=== PATIENT | male | born 1960 | race African-American/Black ===

== ENCOUNTER 2018-02-11 11:09 | Inpatient (IN) | payer OTHER ==
[~2018-02-11] VITALS: Ht 172.7 cm; Wt 82.1 kg
[2018-02-11] MEDS ORDERED: HYDR-552 PO (11:22)
--- NOTE | 2018-02-11 11:48 | NUR ---
ABDOMINAL DISTENSION, SEEN AT [place] 02/08/18 FOR ASCITIS. PT AAOX3, VSS. DENIES CP, SOB, DIZZINESS, N/V/D @ THIS TIME. PT SEEN & EVAL'D BY DR. VERAS. EKG DONE. WILL CONT TO MONITOR.
[2018-02-11 11:59] LABS: CALCIUM, SERUM 7.4 mg/dL (8.5-10.1); CARBON DIOXIDE 29 mmol/L (21-32); CHLORIDE 100 mmol/L (98-107); CREATININE 0.8 mg/dL (0.6-1.3); GLUCOSE 154 mg/dL (74-106); SODIUM SERUM 133 mmol/L (136-145); UREA NITROGEN, BLOOD 3 mg/dL (7-18)
[2018-02-11 12:04] LABS: POTASSIUM 2.8 mmol/L (3.5-5.1)
[2018-02-11 12:07] LABS: TROPONIN I 0.114 ng/mL (0.00-0.056)
[2018-02-11 12:16] LABS: ALANINE AMINOTRANSFERASE 61 U/L (12-78); ALBUMIN 2.2 g/dL (3.4-5.0); ALCOHOL, BLOOD 244 mg/dL (0-0); ALKALINE PHOSPHATASE 167 U/L (46-116); ASPARTATE AMINOTRANSFERASE 178 U/L (15-37); BILIRUBIN,DIRECT 3.6 mg/dL (0.0-0.2); BILIRUBIN,TOTAL 5.1 mg/dL (0.2-1.0); TOTAL PROTEIN, SERUM 8.3 g/dL (6.4-8.2)
[2018-02-11 12:22] LABS: ACETAMINOPHEN < 2 ug/ml (10-30); SALICYLATE < 2.8 mg/dL (2.8-20.0)
[2018-02-11] MEDS ORDERED: ZOLPIDEM TARTRATE 5 MG TABLET PO PRN (13:00)
[2018-02-11] MEDS ORDERED: MAGNESIUM HYDROXIDE 30 ML UDC PO PRN (13:00)
[2018-02-11] MEDS ORDERED: ACETAMINOPHEN 325 MG TABLET PO PRN (13:00)
[2018-02-11] MEDS ORDERED: Z GUARD REMEDY 2 OZ OINT TP PRN (13:00)
[2018-02-11] MEDS ORDERED: MAG HYDROX/AL HYDROX/SIMETH 30 ML UDC PO PRN (13:00)
[2018-02-11] MEDS ORDERED: HYDROCODONE/APAP 5/325MG 1 EACH TABLET PO PRN (13:00)
[2018-02-11] MEDS ORDERED: ONDANSETRON HCL/PF 4 MG/2 ML VIAL IVP PRN (13:00)
[2018-02-11 13:09] LABS: HEMATOCRIT 38 % (39-51); HEMOGLOBIN 12.7 g/dL (13.5-17.5); MEAN CORPUSCULAR HEMOGLOBIN 35 PG (26.0-33.0); MEAN CORPUSCULAR HGB CONC 34 g/dl (31.0-36.0); MEAN CORPUSCULAR VOLUME 103 fL (80-96); PLATELET COUNT (AUTO) 110 /CMM (150-450); RDW COEFFICIENT OF VARIATION 15.5 (11.5-15.0); RED BLOOD CELL COUNT(AUTO) 3.67 MIL/uL (4.5-6.0); WHITE BLOOD COUNT (AUTO) 4.6 K/uL (4.3-11.0)
[2018-02-11 13:12] LABS: BAND % (MANUAL) 4 % (0.0-5.0); BASOPHILS % (MANUAL) 0 % (0.0-2.0); EOSINOPHILS % (MANUAL) 1 % (0-4); LYMPHOCYTES % (MANUAL) 22 % (16-48); MONOCYTES % (MANUAL) 11 % (0-11.0); NEUTROPHILS % (MANUAL) 62 (42-76)
--- NOTE | 2018-02-11 13:49 | NUR ---
PT RESTING EYES CLOSED BUT EASILY AWAKEN WITH VERBAL STIMULI. DENIES ABD PAIN, SOB, N/V/D, DIZZINESS, NAD NOTED @ THIS TIME. WILL CONT TO MONITOR.
[2018-02-11 14:05] LABS: APPEARANCE,URINE Clear (CLEAR); BILIRUBIN,URINE MODERATE (NEGATIVE); BLOOD, URINE Small Ery/uL (NEGATIVE); KETONES,URINE Trace (NEGATIVE); LEUKOCYTE ESTERASE ,URINE Negative (NEGATIVE); NITRITE, URINE Negative (NEGATIVE); PH,URINE 5.5 (5.0-8.0); PROTEIN,URINE Negative (NEGATIVE); UGLUCOSE Negative (NEGATIVE)
[2018-02-11 14:13] LABS: COLOR,URINE Dark Yellow (YELLOW)
[2018-02-11 14:45] VITALS: BP 141/80
--- NOTE | 2018-02-11 14:45 | NUR ---
REVERSE UNIT OPERATOR NOTES RECEIVED PATIENT FROM ER. PATIENT DIAGNOSIS OF LIVER FAILURE. PATIENT A/OX4, ABLE TO AMBULATE. NO ACUTE DISTRESS, NO SOB, DENIED ANY PAIN OR DISCOMFORT AT THE MOMENT. IV SITE INTACT AND PATENT. ABDOMINAL DISTENSION/ASCITES NOTED. BILATERAL LOWER EXTREMITIES PITTING EDEMA NOTED. BED IN LOW/LOCKED POSITION, SIDERAILS UPX2, CALL LIGHT IN REACH. WILL CONTINUE TO MONIOTR ACCORDINGLY. ORDERS NOTED AND WILL CARRY OUT.
[2018-02-11] MEDS ORDERED: FUROSEMIDE 40 MG/4 ML VIAL IV SCH (15:00)
[2018-02-11] MEDS ORDERED: POTASSIUM CHLORIDE 20 MEQ TAB.PRT.SR PO ONE (15:00)
--- NOTE | 2018-02-11 15:00 | NUR ---
HOME MEDS BROUGHT TO THE PHARMACY. ALL BELONGINGS NOTED ON CHECKLIST BY KESHIA VERMA.
[2018-02-11 15:18] LABS: BACTERIA,URINE Rare /HPF (None Seen); WBC,URINE 0-2 /HPF (0-3)
[2018-02-11 15:19] LABS: SQUAMOUS EPITHELIAL CELL,UR Rare /HPF (None Seen)
[2018-02-11] MEDS: THIAMINE HCL 100 MG TABLET PO SCH (15:35)
[2018-02-11] MEDS: FOLIC ACID 1 MG TABLET PO SCH (15:35)
[2018-02-11] MEDS: PYRIDOXINE HCL 50 MG TABLET PO SCH (15:36)
[2018-02-11] MEDS: SPIRONOLACTONE 25 MG TABLET PO SCH (15:37)
[2018-02-11 16:00] VITALS: BP 143/78
[2018-02-11] MEDS: ALBUMIN 25% 25 GM in PREMIX 1 EA IV SCH (16:50)
[2018-02-11] MEDS ORDERED: LACTULOSE 10 G/15 ML UDC (PYXIS) PO PRN (17:00)
[2018-02-11] MEDS: LACTULOSE 10 G/15 ML UDC (PYXIS) PO SCH (17:14)
--- NOTE | 2018-02-11 18:10 | NUR ---
RN NOTES MANAGER FIXED INCOME CALLED AND INFORM THAT PARACENTESIS WILL BE DONE TOMORROW.
--- NOTE | 2018-02-11 18:32 | NUR ---
@ 17;00, INR level did not check yet. This exam will be done tomorrow on 02/12/2018, after checking INR level. Nurse Alcaraz is aware of it.
--- NOTE | 2018-02-11 19:25 | NUR ---
RN CLOSING NOTES PATIENT IN STABLE CONDITION, ALL NEEDS ATTENDED AND PROVIDED, ALL DUE MEDS GIVEN ORDERED. KEPT PATIENT SAFE AND COMFORTABLE. BED IN LOW/LOCKED POSITION, SIDERAILS UPX2, CALL LIGHT IN REACH. ENDORSED TO NIGHT RN FOR ERIK.
[2018-02-11 19:27] LABS: INR 1.37 (0.87-1.13)
--- NOTE | 2018-02-11 19:30 | NUR ---
HOME HEALTH NURSE LICENSED PRACTICAL OPENING NOTES RECEIVED PATIENT IN BED AWAKE. ALERT AND ORIENTED X3. VERBALLY RESPONSIVE. BREATHING EVEN AND UNLABORED. NO SOB NOTED. ON ROOM -AIR. DENIES ANY PAIN OR DISCOMFORT. IV ON LEFT AC#20 INTACT AND PATENT. ALL OTHER NEEDS ATTENDED TO. CALL LIGHT WITHIN REACH. BED ON LOWEST LOCKED POSITION. WILL CONTINUE TO MONITOR.
[2018-02-11 20:00] VITALS: BP 136/86
[2018-02-12] VITALS: BP 129/82
[2018-02-12 04:00] VITALS: BP 148/80
[2018-02-12] MEDS: ALBUMIN 25% 25 GM in PREMIX 1 EA IV SCH (04:39)
[2018-02-12] MEDS: LACTULOSE 10 G/15 ML UDC (PYXIS) PO SCH ×4 (05:57→18:13)
[2018-02-12 07:00] LABS: THYROID STIMULATING HORMONE 6.638 uIU/mL (0.358-3.74)
--- NOTE | 2018-02-12 07:01 | NUR ---
YARN SPOOLER CLOSING NOTES PATIENT IN BED AWAKE. ALERT AND ORIENTED X3. NO ACUTE CHANGES THROUGHOUT SHIFT. BREATHING EVEN AND UNLABORED. NO SOB NOTED. ON ROOM -AIR. DENIES ANY PAIN OR DISCOMFORT. IV ON LEFT AC#20 INTACT AND PATENT. ALL OTHER NEEDS ATTENDED TO. CALL LIGHT WITHIN REACH. BED ON LOWEST LOCKED POSITION. WILL ENDORSE TO ONCOMING NURSE FOR CONTINUITY OF CARE.
[2018-02-12 07:10] LABS: CALCIUM, SERUM 7.9 mg/dL (8.5-10.1); CREATININE 0.8 mg/dL (0.6-1.3); MAGNESIUM 1.4 mg/dL (1.8-2.4); PHOSPHORUS 2.7 mg/dL (2.5-4.9); POTASSIUM 3.4 mmol/L (3.5-5.1)
[2018-02-12 08:00] VITALS: BP 144/87
[2018-02-12 08:31] LABS: HEMATOCRIT 36 % (39-51); HEMOGLOBIN 12.8 g/dL (13.5-17.5); MEAN CORPUSCULAR HEMOGLOBIN 37 PG (26.0-33.0); MEAN CORPUSCULAR HGB CONC 36 g/dl (31.0-36.0); MEAN CORPUSCULAR VOLUME 103 fL (80-96); NEUTROPHILS % (AUTO) 55.5 % (43.0-81.0); PLATELET COUNT (AUTO) 80 /CMM (150-450); RDW COEFFICIENT OF VARIATION 15.7 (11.5-15.0); RED BLOOD CELL COUNT(AUTO) 3.47 MIL/uL (4.5-6.0); WHITE BLOOD COUNT (AUTO) 4.2 K/uL (4.3-11.0)
[2018-02-12 08:32] LABS: BASOPHILS % (AUTO) 1.5 % (0.0-2.0); EOSINOPHILS % (AUTO) 0.7 % (0.0-6.0); MONOCYTES % (AUTO) 15.3 % (2.0-12.0)
[2018-02-12] MEDS ORDERED: CELE200C PO (08:44)
[2018-02-12] MEDS ORDERED: AMLO10TA6 PO (08:44)
[2018-02-12] MEDS ORDERED: PANT40TA4 PO (08:44)
[2018-02-12] MEDS ORDERED: CYCL15DR16 EACHEYE (08:57)
[2018-02-12] MEDS: SPIRONOLACTONE 25 MG TABLET PO SCH (09:25)
[2018-02-12] MEDS: FUROSEMIDE 40 MG/4 ML VIAL IV SCH (09:25)
[2018-02-12] MEDS: FOLIC ACID 1 MG TABLET PO SCH (09:25)
[2018-02-12] MEDS: THIAMINE HCL 100 MG TABLET PO SCH (09:26)
[2018-02-12] MEDS: PYRIDOXINE HCL 50 MG TABLET PO SCH (09:26)
[2018-02-12] MEDS ORDERED: LORAZEPAM INJ 2 MG/ML VIAL IV PRN (11:00)
[2018-02-12 11:24] LABS: BAND % (MANUAL) 1 % (0.0-5.0); LYMPHOCYTES % (MANUAL) 25 % (16-48); MONOCYTES % (MANUAL) 16 % (0-11.0); NEUTROPHILS % (MANUAL) 58 (42-76)
[2018-02-12] MEDS ORDERED: POTASSIUM CHLORIDE 20 MEQ TAB.PRT.SR PO SCH (11:30)
--- NOTE | 2018-02-12 12:00 | NUR ---
PARACENTESIS COMPLETED.
[2018-02-12] MEDS: Magnesium 1GM/D5W 100ML PREMIX 100 ML IV SCH ×4 (12:02→16:02)
--- NOTE | 2018-02-12 14:41 | NUR ---
Social service consult requested by regional business manager Paige Mejia for possible homelessness. Pt. is a 57 year old -[place] male who was admitted to [facility] for cirrhosis of liver. SW met with pt. bedside. Pt. is alert and oriented x 4. Pt. was cooperative and pleasant with SW during the assessment. Pt. states he resides at [facility] located at [address] [place] [address] .Pt. has been residing there for the past 18 months. Pt. denies drug use. Pt. is an alcoholic and drinks 4 tall cans of beer and a pint of vodka per day for up to 5 to 6 days per week. Pt. denies cigarettes and marijuana use. Pt. has not been to any alcohol treatment programs in the past. Pt. is interested in getting alcohol treatment program referrals. SW to give pt. referrals prior to discharge. Pt. has psychiatric diagnosis of Bipolar, Schizophrenia and Depression. Pt. does take medication on a daily basis. No other social service needs are required at this time. SW is available, if needed.
[2018-02-12 16:00] VITALS: BP 155/88
--- NOTE | 2018-02-12 16:24 | NUR ---
ORDERS FOR PARACENTESIS FLUID GIVEN BY DR. GORE-SPECIMEN TO LAB AT THIS TIME.FURTHER ORDERS PLACED BY DR. GORE.
[2018-02-12 16:58] LABS: ALBUMIN 2.3 g/dL (3.4-5.0); BILIRUBIN,DIRECT 3.4 mg/dL (0.0-0.2); BILIRUBIN,TOTAL 5.5 mg/dL (0.2-1.0); TOTAL PROTEIN, SERUM 7.9 g/dL (6.4-8.2)
[2018-02-12 17:27] LABS: INR 1.42 (0.87-1.13)
--- NOTE | 2018-02-12 18:00 | NUR ---
POTASSIUM,MG REPLACEMENT COMPLETE.
--- NOTE | 2018-02-12 19:25 | NUR ---
RN OPENING NOTES RECEIVED PT IN BED, ASLEEP BUT EASILY AROUSABLE, VERBALLY RESPONSIVE, WITH NO C/O PAIN AND IN NO DISTRESS AT THIS TIME. PT ON TELE MONITORING SR @ 90s. PLACED PT'S CALL LIGHT WITHIN EASY REACH. PLACED BED IN LOW POSITION AND LOCKED IN PLACE. WILL CONTINUE TO MONITOR PT.
[2018-02-12 20:00] VITALS: BP 141/76
[2018-02-13] MEDS: LACTULOSE 10 G/15 ML UDC (PYXIS) PO SCH ×3 (00:05→12:00)
[2018-02-13 00:48] VITALS: BP 152/86
[2018-02-13 04:00] VITALS: BP 160/90
[2018-02-13 06:57] LABS: CALCIUM, SERUM 8.1 mg/dL (8.5-10.1); CREATININE 0.8 mg/dL (0.6-1.3); MAGNESIUM 1.6 mg/dL (1.8-2.4); PHOSPHORUS 3.2 mg/dL (2.5-4.9); POTASSIUM 3.3 mmol/L (3.5-5.1)
--- NOTE | 2018-02-13 06:57 | NUR ---
RN CLOSING NOTES PATIENT IN BED, ASLEEP BUT EASILY AROUSABLE, NO DISTRESS NOTED THROUGHOUT THE NIGHT, SLEPT WELL. PATIENT SAFELY AMBULATES TO THE BATHROOM, DENIES PAIN, IN NO DISTRESS AND WITH NO SOB, BREATHING EVEN AND UNLABORED. ON TELE MONITORING WITH SR @ 90s. ALL PATIENT'S NEEDS ATTENDED TO. PLACED CALL LIGHT WITHIN EASY REACH AND LOCKED BED IN LOW POSITION. WILL ENDORSE TO AM SHIFT NURSE FOR CONTINUITY OF CARE.
[2018-02-13 07:13] LABS: HEMATOCRIT 37 % (39-51); HEMOGLOBIN 13.1 g/dL (13.5-17.5); MEAN CORPUSCULAR HEMOGLOBIN 36 PG (26.0-33.0); MEAN CORPUSCULAR HGB CONC 35 g/dl (31.0-36.0); MEAN CORPUSCULAR VOLUME 103 fL (80-96); PLATELET COUNT (AUTO) 86 /CMM (150-450); RDW COEFFICIENT OF VARIATION 15.7 (11.5-15.0); RED BLOOD CELL COUNT(AUTO) 3.62 MIL/uL (4.5-6.0); WHITE BLOOD COUNT (AUTO) 4.5 K/uL (4.3-11.0)
[2018-02-13] MEDS ORDERED: PANTOPRAZOLE 40 MG TABLET.DR PO SCH (07:30)
--- NOTE | 2018-02-13 07:30 | NUR ---
RECEIVED PT. ALERT AND ORIENTED X4.VS STABLE,NO COMPLAINTS OFFERED.ABD. STILL DISTENDED.
[2018-02-13 08:00] VITALS: BP 157/89
[2018-02-13] MEDS: SPIRONOLACTONE 25 MG TABLET PO SCH (08:52)
[2018-02-13] MEDS: FUROSEMIDE 40 MG/4 ML VIAL IV SCH (08:52)
[2018-02-13] MEDS: PYRIDOXINE HCL 50 MG TABLET PO SCH (08:53)
[2018-02-13 08:54] VITALS: BP 157/89
[2018-02-13] MEDS: THIAMINE HCL 100 MG TABLET PO SCH (08:54)
[2018-02-13] MEDS: FOLIC ACID 1 MG TABLET PO SCH (08:55)
[2018-02-13] MEDS ORDERED: CYCLOPENTOLATE EACHEYE SCH (09:00)
[2018-02-13] MEDS ORDERED: AMLODIPINE BESYLATE 10 MG TABLET PO SCH (09:00)
[2018-02-13] MEDS ORDERED: CYCLOPENTOLATE LEFTEYE SCH (09:00)
--- NOTE | 2018-02-13 09:00 | NUR ---
TELE MONITOR REMOVED.
[2018-02-13] MEDS: Magnesium 1GM/D5W 100ML PREMIX 100 ML IV SCH ×2 (09:01→10:46)
[2018-02-13 09:42] LABS: BAND % (MANUAL) 1 % (0.0-5.0); EOSINOPHILS % (MANUAL) 1 % (0-4); LYMPHOCYTES % (MANUAL) 14 % (16-48); MONOCYTES % (MANUAL) 14 % (0-11.0); NEUTROPHILS % (MANUAL) 70 (42-76)
[2018-02-13] MEDS ORDERED: THIA100T13 PO (10:49)
[2018-02-13] MEDS ORDERED: FURO10VI PO (10:49)
[2018-02-13] MEDS ORDERED: PYRI50TA74 PO (10:49)
[2018-02-13] MEDS ORDERED: SPIR25TA PO (10:49)
[2018-02-13] MEDS ORDERED: LACT10SO6 PO (10:49)
[2018-02-13] MEDS ORDERED: FOLI1TAB16 PO (10:49)
[2018-02-13] MEDS ORDERED: POTASSIUM CHLORIDE 20 MEQ TAB.PRT.SR PO SCH ×2 (11:30→13:30)
--- NOTE | 2018-02-13 11:47 | NUR ---
CARIDAD met with pt. and gave him the following referrals to Alcohol treatment programs both inpatient and outpatient: [facility] located at [address] [facility] located at [address] [facility] and [facility] outpatient program located at [address], [address]. . CARIDAD updated Med Surg OMAR Berman, case coordinator Paige Mejia and Dr. Mcneil regarding giving the pt. referrals. No other social service needs are requested at this time. SW is available, if needed.
--- NOTE | 2018-02-13 12:00 | NUR ---
MG REPLACEMENT WELL POTASSIUM REPLACEMENT.PT. TOLERATED WELL.
--- NOTE | 2018-02-13 12:30 | NUR ---
DR. AVELAR IN AND PLANS FOR DISCHARGE TODAY.
--- NOTE | 2018-02-13 13:30 | NUR ---
DR. GORE TEXTED AND OK'DISCHARGE TODAY.
--- NOTE | 2018-02-13 15:15 | NUR ---
HEP LOCK OUT.MEDS FROM PHARMACY GIVEN BACK TO PT. WELL BELONGING SHEET SIGNED. ALL PAPERS SIGNED.ESCORTED TO LOBBY BY TEACHER ADVENTURE EDUCATION,FRIEND WAITING IN PARKING LOT.
== END 2018-02-13 15:15 | disposition home or self-care (01) | DRG 280 ==
LOC: ER 11:25 → TELE 14:24 → MED 02-13 09:39
PROC: 0W9G3ZZ Drainage of Peritoneal Cavity, Percutaneous Approach (ICD-10-PCS; principal; 2018-02-12)
DX: K70.31 Alcoholic cirrhosis of liver with ascites (principal); K70.11 Alcoholic hepatitis with ascites; I21.A1 Myocardial infarction type 2; D69.6 Thrombocytopenia, unspecified; K72.90 Hepatic failure, unspecified without coma; E72.20 Disorder of urea cycle metabolism, unspecified; E87.1 Hypo-osmolality and hyponatremia; E83.42 Hypomagnesemia; E87.70 Fluid overload, unspecified; E88.09 Other disorders of plasma-protein metabolism, not elsewhere classified; E87.6 Hypokalemia; D75.89 Other specified diseases of blood and blood-forming organs; F17.210 Nicotine dependence, cigarettes, uncomplicated; E80.6 Other disorders of bilirubin metabolism; K76.6 Portal hypertension; Y90.8 Blood alcohol level of 240 mg/100 ml or more; R60.1 Generalized edema; F10.188 Alcohol abuse with other alcohol-induced disorder; I10 Essential (primary) hypertension
CPT/HCPCS: 36415; 71045-TC; 76705-TC; 76942-TC; 80048-TC; 80061-TC; 80076-TC; 80305; 81000-TC; 82040-TC; 82140-TC; 83605-TC; 83735-TC; 84100-TC; 84155-TC; 84443-TC; 84484-TC; 85025-TC; 85610-TC; 87040-TC; 87070-TC; 87081-TC; 88305-TC; 88312-TC; 89051-TC; 93307-TC; A4216; A4606; G0480; J1940; J3475; P9047; Z7610

== ENCOUNTER 2019-02-18 15:37 | Inpatient (IN) | payer OTHER ==
[~2019-02-18] VITALS: Ht 170.2 cm; Wt 93.9 kg
[~2019-02-18 15:37] MED LIST: AMLO10TA7 PO; CYCL15DR16 EACHEYE; FOLI1TAB16 PO; FURO10VI PO; LACT10SO6 PO; PANT40TA4 PO; PYRI50TA15 PO; SPIR25TA PO; THIA100T13 PO
--- NOTE | 2019-02-18 17:01 | NUR ---
PATIENT CAME TO ER WITH ABDOMINAL SWELLING AND BLE EDEMA. NAD NOTED. NO SOB. PATIENT CONNECTED TO MONITOR. AWAITING MD BORJA. WILL CONTINUE TO MONITOR PATIENT FOR SAFETY.
--- NOTE | 2019-02-18 17:35 | NUR ---
blood drawn and sent to lab
[2019-02-18 17:43] LABS: BASOPHILS % (AUTO) 0.8 % (0.0-2.0); EOSINOPHILS % (AUTO) 1.1 % (0.0-6.0); HEMATOCRIT 38 % (39-51); HEMOGLOBIN 13.2 g/dL (13.5-17.5); LYMPHOCYTES # (AUTO) 1.1 /CMM (0.8-4.8); LYMPHOCYTES % (AUTO) 27.4 % (20.0-44.0); MEAN CORPUSCULAR HGB CONC 35 g/dl (31.0-36.0); MEAN CORPUSCULAR VOLUME 106 fL (80-96); MONOCYTES # (AUTO) 0.5 /CMM (0.1-1.30); MONOCYTES % (AUTO) 11.6 % (2.0-12.0); NEUTROPHILS # (AUTO) 2.3 /CMM (1.8-8.9); NEUTROPHILS % (AUTO) 59.1 % (43.0-81.0); PLATELET COUNT (AUTO) 94 /CMM (150-450); RED BLOOD CELL COUNT(AUTO) 3.57 MIL/uL (4.5-6.0)
[2019-02-18 17:51] LABS: CALCIUM, SERUM 7.8 mg/dL (8.5-10.1); CREATININE 0.9 mg/dL (0.6-1.3); POTASSIUM 3.2 mmol/L (3.5-5.1)
[2019-02-18 18:03] LABS: ALBUMIN 2.1 g/dL (3.4-5.0); BILIRUBIN,DIRECT 3.1 mg/dL (0.0-0.2); BILIRUBIN,TOTAL 3.8 mg/dL (0.2-1.0); TOTAL PROTEIN, SERUM 8.4 g/dL (6.4-8.2)
[2019-02-18 18:54] LABS: BAND % (MANUAL) 1 % (0.0-5.0); EOSINOPHILS % (MANUAL) 1 % (0-4); LYMPHOCYTES % (MANUAL) 28 % (16-48); MONOCYTES % (MANUAL) 7 % (0-11.0); NEUTROPHILS % (MANUAL) 63 (42-76)
--- NOTE | 2019-02-18 19:30 | NUR ---
ASSUMED CARE FOR THIS PT AT THIS TIME
--- NOTE | 2019-02-18 20:26 | NUR ---
REPORT GIVEN TO HEIDE MAXWELL FOR ERIK
--- NOTE | 2019-02-18 21:27 | NUR ---
TRANSFERRED PT PER ACLS PROTOCOL TO TELE BED
--- NOTE | 2019-02-18 21:27 | NUR ---
BLOCKER AND POLISHER GOLD WHEEL NOTE PT. ARRIVED FROM ER VIA GURNEY ACCOMPANIED BY ER STAFF. PT WAS ABLE TO AMBULATE WITH STEADY GAIT TO BED. PT. A/O X4, NO SIGNS OF SOB OR DISTRESS, NO C/O CHEST PAIN, N/V. STABLE ON ROOM AIR. IV IN R AC #[address] S/L. TELE MONITOR READING IS SR 80. ALL CURRENT NEEDS ATTENDED TO. BED LOW, LOCKED, UPPER RAILS UP, AND CALL LIGHT WITHIN REACH. PT BELONGINGS ACCOUNTED AND SIGNED FOR. WALLET, WATCH, AND NECKLACE PACKAGED WITH RUDOLFO (STITCHER SET UP OPERATOR AUTOMATIC) AND BROUGHT TO SWITCH OPERATOR TO THE SAFE. SKIN ASSESSED WITH BODY NOTED TO BE INTACT. DR. ROSENBERG MADE AWARE OF PT. ARRIVAL TO FLOOR. WILL CONT. TO MONITOR.
[2019-02-18 22:00] VITALS: BP 156/96
[2019-02-18] MEDS ORDERED: Z GUARD REMEDY 2 OZ OINT TP PRN (22:30)
[2019-02-18] MEDS ORDERED: MAG HYDROX/AL HYDROX/SIMETH 30 ML UDC PO PRN (22:30)
[2019-02-18] MEDS ORDERED: ONDANSETRON HCL/PF 4 MG/2 ML VIAL IVP PRN (22:30)
[2019-02-18] MEDS ORDERED: MAGNESIUM HYDROXIDE 30 ML UDC PO PRN (22:30)
[2019-02-18] MEDS ORDERED: ZOLPIDEM TARTRATE 5 MG TABLET PO PRN (22:30)
[2019-02-19] VITALS: BP 149/89
[2019-02-19 04:00] VITALS: BP 158/93
[2019-02-19] MEDS: LACTULOSE 10 G/15 ML UDC (PYXIS) PO SCH ×4 (05:06→17:04)
--- NOTE | 2019-02-19 06:38 | NUR ---
MS RN NOTE PT. REMAINS IN STABLE CONDITION A/O X4, NO SIGNS OF SOB OR DISTRESS, NO C/O CHEST PAIN, N/V. STABLE ON ROOM AIR. IV IN R AC #[address] S/L. TELE MONITOR READING IS SR 80. ALL CURRENT NEEDS ATTENDED TO. BED LOW, LOCKED, UPPER RAILS UP, AND CALL LIGHT WITHIN REACH. WILL CONT. TO MONITOR AND ENDORSE TO NEST SHIFT FOR ERIK.
--- NOTE | 2019-02-19 07:18 | NUR ---
ICE CREAM CHEF OPENING NOTES RECEIVED PATIENT IN BED RESTING COMFORTABLY IN MODERATE HIGH BACK REST. A/O X3. ON TELE MONITORING WITH CURRENT READING OF SR, HR OF 80'S. NO S/S OF DISTRESS AT THIS TIME. IV ACCESS ON RIGHT AC #20, SL. PATENT AND INTACT. SAFETY MEASURES IN PLACE, BED IN LOW LOCKED POSITION WITH SIDE RAILS UP X2. CALL LIGHT WITHIN EASY REACH. WILL CONTINUE TO MONITOR.
[2019-02-19] MEDS: PANTOPRAZOLE 40 MG TABLET.DR PO SCH (07:30)
[2019-02-19 07:35] LABS: BASOPHILS % (AUTO) 1.3 % (0.0-2.0); EOSINOPHILS % (AUTO) 1.2 % (0.0-6.0); HEMATOCRIT 36 % (39-51); HEMOGLOBIN 12.6 g/dL (13.5-17.5); LYMPHOCYTES # (AUTO) 0.9 /CMM (0.8-4.8); LYMPHOCYTES % (AUTO) 26.2 % (20.0-44.0); MEAN CORPUSCULAR HGB CONC 35 g/dl (31.0-36.0); MEAN CORPUSCULAR VOLUME 104 fL (80-96); MONOCYTES # (AUTO) 0.5 /CMM (0.1-1.30); MONOCYTES % (AUTO) 15.6 % (2.0-12.0); NEUTROPHILS # (AUTO) 1.9 /CMM (1.8-8.9); NEUTROPHILS % (AUTO) 55.7 % (43.0-81.0); PLATELET COUNT (AUTO) 88 /CMM (150-450); RED BLOOD CELL COUNT(AUTO) 3.44 MIL/uL (4.5-6.0); WHITE BLOOD COUNT (AUTO) 3.5 K/uL (4.3-11.0)
[2019-02-19 07:55] LABS: ALBUMIN 1.8 g/dL (3.4-5.0); BILIRUBIN,TOTAL 5.1 mg/dL (0.2-1.0); CALCIUM, SERUM 7.5 mg/dL (8.5-10.1); CREATININE 0.8 mg/dL (0.6-1.3); MAGNESIUM 1.3 mg/dL (1.8-2.4); POTASSIUM 3.4 mmol/L (3.5-5.1); TOTAL PROTEIN, SERUM 7.5 g/dL (6.4-8.2)
[2019-02-19 08:00] VITALS: BP 146/88
[2019-02-19] MEDS: Magnesium 1GM/D5W 100ML PREMIX 100 ML IV SCH ×2 (08:32→09:33)
[2019-02-19] MEDS: CARVEDILOL 12.5 MG TABLET PO SCH ×2 (09:00→21:09)
[2019-02-19] MEDS: FOLIC ACID 1 MG TABLET PO SCH (09:00)
[2019-02-19] MEDS: THIAMINE HCL 100 MG TABLET PO SCH (09:00)
[2019-02-19] MEDS: POTASSIUM CHLORIDE 20 MEQ TAB.PRT.SR PO SCH ×2 (09:00→10:00)
[2019-02-19] MEDS: SPIRONOLACTONE 25 MG TABLET PO SCH (09:00)
[2019-02-19] MEDS: AMLODIPINE BESYLATE 10 MG TABLET PO SCH (09:00)
[2019-02-19] MEDS: PYRIDOXINE HCL 50 MG TABLET PO SCH (09:00)
[2019-02-19 09:04] LABS: THYROID STIMULATING HORMONE 4.283 uIU/mL (0.358-3.74)
[2019-02-19] MEDS ORDERED: CYCLOPENTOLATE 1% OPHTHALMIC 2 ML BOTTLE EACHEYE SCH (12:00)
[2019-02-19] MEDS: POTASSIUM CL. PREMIX PERIPHER. 50 ML IV SCH ×4 (14:15→17:02)
[2019-02-19 16:00] VITALS: BP 140/90
--- NOTE | 2019-02-19 18:52 | NUR ---
EMPLOYEE TRAINING SPECIALIST CLOSING NOTES PATIENT IN BED RESTING COMFORTABLY IN MODERATE HIGH BACK REST. A/O X3. ON RA, TOLERATING WELL. NO S/S OF DISTRESS THROUGHOUT THE SHIFT. S/P US PARACENTESIS WITH OUTPUT OF 5500. IV ACCESS ON RIGHT AC #20, SL. PATENT AND INTACT. SAFETY MEASURES IN PLACE, BED IN LOW LOCKED POSITION WITH SIDE RAILS UP X2. CALL LIGHT WITHIN EASY REACH. WILL ENDORSED TO CERTIFIED OPHTHALMIC TECHNOLOGIST NURSE FOR ERIK.
--- NOTE | 2019-02-19 19:42 | NUR ---
MS RN NOTE RECEIVED PT. IN STABLE CONDITION A/O X4, NO SIGNS OF SOB OR DISTRESS, NO C/O CHEST PAIN, N/V. STABLE ON ROOM AIR. IV IN R AC #[address] S/L. ALL CURRENT NEEDS ATTENDED TO. BED LOW, LOCKED, UPPER RAILS UP, AND CALL LIGHT WITHIN REACH. WILL CONT TO MONITOR.
[2019-02-19 20:00] VITALS: BP 155/85
[2019-02-19 20:31] VITALS: BP 155/85
[2019-02-20] MEDS: LACTULOSE 10 G/15 ML UDC (PYXIS) PO SCH ×3 (00:05→12:00)
--- NOTE | 2019-02-20 05:08 | NUR ---
MS RN NOTE PT REFUSING 0600 DOSE OF LACTULOSE, STATING THAT IT MAKES HIM GO TO THE RESTROOM TOO MUCH. RISKS AND BENEFITS MADE AWARE WITH VERBALIZATION OF UNDERSTANDING. WILL CONT. TO MONITOR.
[2019-02-20 06:18] LABS: BASOPHILS % (AUTO) 0.8 % (0.0-2.0); EOSINOPHILS % (AUTO) 1.2 % (0.0-6.0); HEMATOCRIT 37 % (39-51); HEMOGLOBIN 12.8 g/dL (13.5-17.5); LYMPHOCYTES # (AUTO) 0.8 /CMM (0.8-4.8); LYMPHOCYTES % (AUTO) 22.4 % (20.0-44.0); MEAN CORPUSCULAR HGB CONC 35 g/dl (31.0-36.0); MEAN CORPUSCULAR VOLUME 104 fL (80-96); MONOCYTES # (AUTO) 0.6 /CMM (0.1-1.30); MONOCYTES % (AUTO) 17.4 % (2.0-12.0); NEUTROPHILS # (AUTO) 2.1 /CMM (1.8-8.9); NEUTROPHILS % (AUTO) 58.2 % (43.0-81.0); PLATELET COUNT (AUTO) 81 /CMM (150-450); WHITE BLOOD COUNT (AUTO) 3.6 K/uL (4.3-11.0)
[2019-02-20 06:33] LABS: CALCIUM, SERUM 7.8 mg/dL (8.5-10.1); CREATININE 0.8 mg/dL (0.6-1.3); POTASSIUM 3.6 mmol/L (3.5-5.1)
--- NOTE | 2019-02-20 06:41 | NUR ---
MS RN NOTE PT. IN STABLE CONDITION A/O X4, NO SIGNS OF SOB OR DISTRESS, NO C/O CHEST PAIN, N/V. STABLE ON ROOM AIR. IV IN R AC #[address] S/L. ALL CURRENT NEEDS ATTENDED TO. BED LOW, LOCKED, UPPER RAILS UP, AND CALL LIGHT WITHIN REACH. WILL CONT TO MONITOR AND ENDORSE TO NEXT SHIFT FOR ERIK.
--- NOTE | 2019-02-20 07:31 | NUR ---
MS RN OPENING NOTES RECEIVED PATIENT IN BED RESTING COMFORTABLY IN MODERATE HIGH BACK REST. A/O X3. IV ACCESS ON RIGHT AC #20, SL. PATENT AND INTACT. SAFETY MEASURES IN PLACE, BED IN LOW LOCKED POSITION WITH SIDE RAILS UP X2. CALL LIGHT WITHIN EASY REACH. WILL CONTINUE TO MONITOR.
[2019-02-20] MEDS: PANTOPRAZOLE 40 MG TABLET.DR PO SCH (07:43)
[2019-02-20 08:00] VITALS: BP 131/87
[2019-02-20] MEDS: SPIRONOLACTONE 25 MG TABLET PO SCH (08:17)
[2019-02-20] MEDS: THIAMINE HCL 100 MG TABLET PO SCH (08:17)
[2019-02-20] MEDS: AMLODIPINE BESYLATE 10 MG TABLET PO SCH (08:17)
[2019-02-20] MEDS: FOLIC ACID 1 MG TABLET PO SCH (08:17)
[2019-02-20 08:18] VITALS: BP 131/87
[2019-02-20] MEDS: CARVEDILOL 12.5 MG TABLET PO SCH (08:18)
[2019-02-20] MEDS: PYRIDOXINE HCL 50 MG TABLET PO SCH (08:18)
--- NOTE | 2019-02-20 14:00 | NUR ---
RN DISCHARGED NOTES PATIENT DISCHARGED IN STABLE CONDITION. A/OX 4. ABLE TO MAKE NEEDS KNOWN. V/S TAKEN, STABLE AND RECORDED. PATIENT'S IV REMOVED AND APPLIED PRESSURE DRESSING. NAME ARM BAND REMOVED. ALL BELONGINGS CHECKED AND SIGNED. HEALTH TEACHINGS/ DISCHARGED INSTRUCTIONS GIVEN AND VERBALIZED UNDERSTANDING. ARRANGE TRANSPORTATION AND CALLED [facility]. PATIENT LEFT UNIT AMBULATORY WITH NO ACUTE SIGNS OF DISTRESS. PATIENT ASSISTED TO THE LOBBY BY HOSPITAL STAFF (CANDI). CHARGE NURSE AWARE OF DISCHARGED.
== END 2019-02-20 14:03 | disposition home or self-care (01) | DRG 280 ==
LOC: ER 15:40 → TELE 20:46 → MED 02-19 09:58
PROVIDERS: ADMIT Internal Medicine; ATTEND Internal Medicine
DX: K70.31 Alcoholic cirrhosis of liver with ascites (principal); I21.A1 Myocardial infarction type 2; D61.818 Other pancytopenia; K72.90 Hepatic failure, unspecified without coma; D69.6 Thrombocytopenia, unspecified; E87.1 Hypo-osmolality and hyponatremia; E83.42 Hypomagnesemia; F10.10 Alcohol abuse, uncomplicated; Y90.7 Blood alcohol level of 200-239 mg/100 ml; Z91.14 Patient's other noncompliance with medication regimen; G89.29 Other chronic pain; Z79.899 Other long term (current) drug therapy; E87.6 Hypokalemia; D53.9 Nutritional anemia, unspecified; F17.200 Nicotine dependence, unspecified, uncomplicated; I10 Essential (primary) hypertension; I70.0 Atherosclerosis of aorta
CPT/HCPCS: 36415; 71045-TC; 76942-TC; 80048-TC; 80053-TC; 80061-TC; 80076-TC; 82140-TC; 83735-TC; 83880; 84100-TC; 84439-TC; 84443-TC; 84480; 84484-TC; 85025-TC; 85730-TC; 87081-TC; 93307-TC; G0378; G0480; J3475; J3480

== ENCOUNTER 2019-07-01 21:51 | Inpatient (IN) | payer OTHER ==
[~2019-07-01] VITALS: Ht 170.2 cm; Wt 92.5 kg
[~2019-07-01 21:51] MED LIST changes: -LACT10SO6 PO
--- NOTE | 2019-07-01 23:09 | NUR ---
TECH AT BEDSIDE FOR EKG
--- NOTE | 2019-07-01 23:26 | NUR ---
BLOOD DRAWN AND GIVEN TO PHLEB
--- NOTE | 2019-07-01 23:30 | NUR ---
RADIOLOGY AT BEDSIDE FOR XRAY
[2019-07-01 23:32] LABS: BASOPHILS % (AUTO) 0.5 % (0.0-2.0); EOSINOPHILS % (AUTO) 1.3 % (0.0-6.0); HEMATOCRIT 36 % (39-51); HEMOGLOBIN 12.4 g/dL (13.5-17.5); LYMPHOCYTES # (AUTO) 1.2 /CMM (0.8-4.8); LYMPHOCYTES % (AUTO) 28.2 % (20.0-44.0); MEAN CORPUSCULAR HGB CONC 34 g/dl (31.0-36.0); MEAN CORPUSCULAR VOLUME 102 fL (80-96); MONOCYTES # (AUTO) 0.6 /CMM (0.1-1.30); MONOCYTES % (AUTO) 14.3 % (2.0-12.0); NEUTROPHILS # (AUTO) 2.3 /CMM (1.8-8.9); NEUTROPHILS % (AUTO) 55.7 % (43.0-81.0); PLATELET COUNT (AUTO) 88 /CMM (150-450); RED BLOOD CELL COUNT(AUTO) 3.56 MIL/uL (4.5-6.0); WHITE BLOOD COUNT (AUTO) 4.2 K/uL (4.3-11.0)
[2019-07-01 23:38] LABS: CALCIUM, SERUM 7.9 mg/dL (8.5-10.1); CARBON DIOXIDE 31 mmol/L (21-32); CHLORIDE 105 mmol/L (98-107); CREATININE 0.9 mg/dL (0.6-1.3); GLUCOSE 99 mg/dL (74-106); POTASSIUM 3.2 mmol/L (3.5-5.1); SODIUM SERUM 141 mmol/L (136-145); UREA NITROGEN, BLOOD 5 mg/dL (7-18)
--- NOTE | 2019-07-01 23:45 | NUR ---
GAVE MOVESHEET TO ADMITTING TO CONTACT INSURANCE FOR AUTH
[2019-07-01 23:52] LABS: ALANINE AMINOTRANSFERASE 43 U/L (12-78); ALKALINE PHOSPHATASE 146 U/L (46-116); ASPARTATE AMINOTRANSFERASE 175 U/L (15-37); B-TYPE NATRIURETIC PEPTIDE 22 PG/ML (0-125); BILIRUBIN,DIRECT 3.2 mg/dL (0.0-0.2); BILIRUBIN,TOTAL 4.1 mg/dL (0.2-1.0); TOTAL PROTEIN, SERUM 8.5 g/dL (6.4-8.2)
[2019-07-02] VITALS (7 sets, daily range): BP systolic 131–162; BP diastolic 74–91
[2019-07-02 00:12] LABS: LYMPHOCYTES % (MANUAL) 28 % (16-48); MONOCYTES % (MANUAL) 11 % (0-11.0); NEUTROPHILS % (MANUAL) 61 (42-76)
--- NOTE | 2019-07-02 00:44 | NUR ---
REPORT GIVEN TO ALISSA CHACON FOR ERIK
[2019-07-02] MEDS ORDERED: Z GUARD REMEDY 2 OZ OINT TP PRN (01:30)
[2019-07-02] MEDS ORDERED: MORPHINE SULFATE INJ 2 MG/ML DISP.SYRIN IV PRN (01:30)
[2019-07-02] MEDS ORDERED: TEMAZEPAM 15 MG CAPSULE PO PRN (01:30)
[2019-07-02] MEDS ORDERED: MAG HYDROX/AL HYDROX/SIMETH 30 ML UDC PO PRN (01:30)
[2019-07-02] MEDS ORDERED: ONDANSETRON HCL/PF 4 MG/2 ML VIAL IVP PRN (01:30)
--- NOTE | 2019-07-02 03:41 | NUR ---
MS/TELE/RN RECEIVED PATIENT FROM E.. [facility] AWAKE, ALERT, ORIENTED, COMFORTABLE, NO SIGNS OF DISTRESS NOTED, ADMISSION DONE PER PROTOCOL, PLAN OF CARE DISCUSSED, VERBALIZED UNDERSTANDING AND AGREEMENT, TAUGHT THE USE OF CALL LIGHT AND PLACED IT AT BEDSIDE WITHIN REACH, FALL PRECAUTIONS PER PROTOCOL. WILL MONITOR.
--- NOTE | 2019-07-02 06:16 | NUR ---
MS/TELE/RN PATIENT IS STILL SLEEPING AT THIS TIME, APPEAR COMFORTABLE, NO DISTRESS NOTED, CALL LIGHT IN REACH, ALL NEEDS ATTENDED AT THIS TIME, WILL CONTINUE TO MONITOR.
--- NOTE | 2019-07-02 07:30 | NUR ---
MEETING COORDINATOR NOTES PT IN BED, ASLEEP, EASY TO AROUSE, ALERT AND ORIENTED, DENIES PAIN, NOT IN DISTRESS, NOTED WITH DISTENDED ABDOMEN, PLAN FOR US GUIDED PARACENTESIS TODAY, PT INFORMED, CONSENT GIVEN, KEPT WARM AND COMFORTABLE IN BED.
[2019-07-02] MEDS ORDERED: ALPR2TAB7 PO (08:45)
[2019-07-02] MEDS ORDERED: LISI10TA5 PO (08:45)
[2019-07-02] MEDS ORDERED: CELE200C PO (08:45)
[2019-07-02] MEDS ORDERED: ESCI10TA PO (08:45)
[2019-07-02] MEDS ORDERED: TRAZ-252 PO (08:45)
[2019-07-02] MEDS ORDERED: SPIR50TA PO (08:45)
[2019-07-02] MEDS ORDERED: PROP20TA19 PO (08:45)
[2019-07-02] MEDS ORDERED: FURO40TA5 PO (08:45)
[2019-07-02] MEDS ORDERED: HYDR-3980 PO (08:45)
[2019-07-02] MEDS: PANTOPRAZOLE 40 MG TABLET.DR PO SCH (09:26)
--- NOTE | 2019-07-02 10:48 | NUR ---
GLOVE BOARDER NOTES PT COMPLETED US GUIDED PARACENTESIS, TOLERATED WELL, REMOVED 6 LITERS OF FLUID, DR. RIOS AWARE, ORDERED TO GIVE ALBUMIN 25% ONETIME.
[2019-07-02] MEDS ORDERED: ALBUMIN 25% 12.5 GM in PREMIX 1 EA IV ONE (11:00)
--- NOTE | 2019-07-02 18:37 | NUR ---
BROOM STITCHER NOTES PT IN BED, RESTING, ALERT AND ORIENTED, NO COMPLAINT OF PAIN OR ANY DISCOMFORT, IV FLUIDS INFUSING WELL, ASSISTED TO BATHROOM NEEDED, WITH STEADY GAIT USING A WALKER, PM MEDS GIVEN, PM CARE PROVIDED, ALL NEEDS ATTENDED. Addendum: 07/02/19 at 1839 by PATRICK NICE RN PLEASE DISREGARD ABOVE NOTE, WRONG PT DOCUMENTED.
--- NOTE | 2019-07-02 18:39 | NUR ---
SENIOR QA ANALYST NOTES PT IN BED, AWAKE, ALERT AND ORIENTED, DENIES PAIN, NOT IN DISTRESS, CALL LIGHT WITHIN REACH, AMBULATES TO THE BATHROOM WITH STEADY GAIT, TOLERATING CURRENT DIET, STATED HE IS FEELING BETTER, NO SHORTNESS OF BREATH NOTED, ALL NEEDS ATTENDED.
--- NOTE | 2019-07-02 19:15 | NUR ---
SENIOR COST ACCOUNTANT OPENING NOTES Received patient awake on bed. On RA, no SOB/respiratory distress noted. No complaints made at this time. On tele monitor with NSR noted. Kept on bed clean, dry and comfortable. Call light within easy reach. Will continue to monitor accordingly.
[2019-07-03 06:30] LABS: BASOPHILS % (AUTO) 0.9 % (0.0-2.0); EOSINOPHILS % (AUTO) 0.1 % (0.0-6.0); HEMATOCRIT 37 % (39-51); HEMOGLOBIN 12.8 g/dL (13.5-17.5); LYMPHOCYTES # (AUTO) 0.6 /CMM (0.8-4.8); LYMPHOCYTES % (AUTO) 16.4 % (20.0-44.0); MEAN CORPUSCULAR HGB CONC 35 g/dl (31.0-36.0); MEAN CORPUSCULAR VOLUME 100 fL (80-96); MONOCYTES # (AUTO) 0.5 /CMM (0.1-1.30); MONOCYTES % (AUTO) 13.2 % (2.0-12.0); NEUTROPHILS # (AUTO) 2.4 /CMM (1.8-8.9); NEUTROPHILS % (AUTO) 69.4 % (43.0-81.0); PLATELET COUNT (AUTO) 64 /CMM (150-450); RED BLOOD CELL COUNT(AUTO) 3.68 MIL/uL (4.5-6.0); WHITE BLOOD COUNT (AUTO) 3.5 K/uL (4.3-11.0)
--- NOTE | 2019-07-03 06:40 | NUR ---
ACTIVITY AID CLOSING NOTES Patient asleep, easily awaken. On RA, no new complaints med. All due meds given as ordered. All nursing needs attended. Medicated for pain, noted effective. On fall and aspiration precautions. Call light within easy reach. Endorsed to the next shift.
[2019-07-03 06:45] LABS: ALBUMIN 1.9 g/dL (3.4-5.0); BILIRUBIN,TOTAL 5.4 mg/dL (0.2-1.0); CREATININE 0.8 mg/dL (0.6-1.3); PHOSPHORUS 3.2 mg/dL (2.5-4.9); POTASSIUM 3.1 mmol/L (3.5-5.1); TOTAL PROTEIN, SERUM 7.9 g/dL (6.4-8.2)
[2019-07-03 06:49] LABS: MAGNESIUM 1.2 mg/dL (1.8-2.4)
[2019-07-03] MEDS ORDERED: POTASSIUM CHLORIDE 20 MEQ TAB.PRT.SR PO ONE (07:30)
[2019-07-03] MEDS: PANTOPRAZOLE 40 MG TABLET.DR PO SCH (07:39)
--- NOTE | 2019-07-03 07:45 | NUR ---
Tele/RN - Assessment Patient is awake, A/O x 4, no complaints overnight, tele shows SR, denies abdominal pain at this time, no apparent distress, afebrile, stable on room air. Saline lock on the LAC is patent, intact, with no signs of infiltration. Labs reviewed, noted with low magnesium level 1.2, Dr. Kent with order to give Magnesium 2 gms IV. Skin is intact. Patient educated on plan of care. Will continue with current medical management.
[2019-07-03 08:00] VITALS: BP 151/90
[2019-07-03] MEDS: Magnesium 1GM/D5W 100ML PREMIX 100 ML IV SCH ×2 (08:22→09:20)
[2019-07-03 09:02] LABS: LYMPHOCYTES % (MANUAL) 19 % (16-48); MONOCYTES % (MANUAL) 6 % (0-11.0); NEUTROPHILS % (MANUAL) 75 (42-76)
[2019-07-03] MEDS: LISINOPRIL (10MG) 10 MG TABLET PO SCH (09:17)
[2019-07-03] MEDS: AMLODIPINE BESYLATE 10 MG TABLET PO SCH (09:18)
[2019-07-03] MEDS: ESCITALOPRAM OXALATE (10 MG) 10 MG TABLET PO SCH (09:18)
[2019-07-03] MEDS: FUROSEMIDE 40 MG TABLET PO SCH (09:18)
[2019-07-03] MEDS: PROPRANOLOL HCL 10 MG TABLET PO SCH ×2 (09:30→16:19)
[2019-07-03] MEDS: SPIRONOLACTONE 25 MG TABLET PO SCH (09:33)
--- NOTE | 2019-07-03 10:00 | NUR ---
FISHER DIVER NET NOTES REPORT RECEIVED FROM REI MAXWELL. PATIENT RECEIVED RESTING INSIDE ROOM. AWAKE, A/O X 4.NO ACUTE DISTRESS. NO CHANGES IN LOC NOTED. DENIES ANY PAIN OR DISCOMFORT. WATER PUMP ASSEMBLER IN PLACE, SR 79. WILL COTNINUE TO MONITOR. BED LOCKED AND IN LOW POSITION. BILATERAL UPPER SIDE RAILS UP AND LOCKED. CALL LIGHT WITHIN EASY REACH
[2019-07-03 12:00] VITALS: BP 169/91
[2019-07-03 16:00] VITALS: BP 163/98
--- NOTE | 2019-07-03 18:25 | NUR ---
INDUSTRIAL SOCIOLOGIST NOTES PATIENT IN BED RESTING. ALERT AND ORIENTED X 4. PATIENT PRESENTS NO RESPIRATORY DISTRESS WITH NON-LABORING BREATHING. PATIENT ON ELEMENTARY ART TEACHER, NSR 68. PATIENT IV ACCESS LAC, 18 GAUGE, DRY, INTACT, AND PATENT.SKIN KEPT CLEAN AND DRY. PROVIDED COMFORT MEASURES. PATIENT IS AMBULATORY, INITIATED SAFETY PRECAUTIONS, WITH BED LOCKED, IN THE LOWEST POSITION, BILATERAL SIDE RAILS UP, BED ALARM ON, AND CALL LIGHT WITHIN EASY REACH. WILL ENDORSE ERIK TO ONCOMING NURSE.
--- NOTE | 2019-07-03 19:00 | NUR ---
quality and reliability engineer opening notes Received Pt from morning nurse. Pt is sitting in bed comfortably watching TV. Pt is alert and orientedX4. Respiration is normal in room air. No SOB. No S/S of distress noted. Tele monitor showed SR Hr at 78. IV sites at LAc # 18 is clean, intact and patent. Safety precautions is maintained. Bed at low position, brakes locked, side rails upX3 and call light is within reach. Will continue to monitor.
[2019-07-03 20:00] VITALS: BP 164/94
[2019-07-03 20:22] VITALS: BP 164/94
[2019-07-03 21:00] VITALS: BP 154/98
[2019-07-04] VITALS: BP 157/94
[2019-07-04 01:44] VITALS: BP 157/94
[2019-07-04 04:00] VITALS: BP 142/92
--- NOTE | 2019-07-04 06:49 | NUR ---
pheresis nurse closing notes Pt is resting in bed comfortably. Pt is alert and orientedX4. Respiration is normal in room air. No SOB. No S/S of distress noted. IV sites at LAC# 18 is clean, intact, patent and SL. Tele monitor showed SR HR at 69. Kept Pt clean, dry, warm and comfortable. All needs met and attended. Safety precautions is maintained. Bed at low position, brakes locked, side rails UpX3 and call light is within reach. Will endorse to morning nurse for ERIK.
[2019-07-04 07:17] LABS: HEMATOCRIT 38 % (39-51); HEMOGLOBIN 13.2 g/dL (13.5-17.5); LYMPHOCYTES # (AUTO) 0.8 /CMM (0.8-4.8); MEAN CORPUSCULAR HGB CONC 34 g/dl (31.0-36.0); MEAN CORPUSCULAR VOLUME 102 fL (80-96); MONOCYTES # (AUTO) 0.6 /CMM (0.1-1.30); MONOCYTES % (AUTO) 15.7 % (2.0-12.0); NEUTROPHILS # (AUTO) 2.6 /CMM (1.8-8.9); NEUTROPHILS % (AUTO) 63.3 % (43.0-81.0); PLATELET COUNT (AUTO) 78 /CMM (150-450); RED BLOOD CELL COUNT(AUTO) 3.75 MIL/uL (4.5-6.0); WHITE BLOOD COUNT (AUTO) 4.1 K/uL (4.3-11.0)
--- NOTE | 2019-07-04 07:25 | NUR ---
TELE/RN NOTE THE PATIENT IS RECEIVED IN BED. PATIENT IS ALERT AND ORIENTED X4. IN ROOM AIR AND DENIES SOB. RESPIRATION REGULAR AND UNLABORED. DENIES PAIN. THE PATIENT IN NO APPARENT DISTRESS. EXTERNAL TELE MONITORING READING IS SR 70. LAC G 18 PATENT AND SALINE LOCKED. BED LOW AND LOCKED. SIDE RAILS UP X3. CALL LIGHT WITHIN REACH. WILL CONTINUE TO MONITOR.
[2019-07-04] MEDS ORDERED: PANTOPRAZOLE 40 MG TABLET.DR PO SCH (07:30)
[2019-07-04 07:39] LABS: CALCIUM, SERUM 7.9 mg/dL (8.5-10.1); CREATININE 0.9 mg/dL (0.6-1.3); MAGNESIUM 1.4 mg/dL (1.8-2.4); PHOSPHORUS 2.6 mg/dL (2.5-4.9); POTASSIUM 3.2 mmol/L (3.5-5.1); TOTAL PROTEIN, SERUM 8.3 g/dL (6.4-8.2)
[2019-07-04 08:00] VITALS: BP 146/76
[2019-07-04] MEDS: PROPRANOLOL HCL 10 MG TABLET PO SCH (08:07)
[2019-07-04] MEDS: AMLODIPINE BESYLATE 10 MG TABLET PO SCH (08:07)
[2019-07-04] MEDS: SPIRONOLACTONE 25 MG TABLET PO SCH (08:07)
[2019-07-04] MEDS: FUROSEMIDE 40 MG TABLET PO SCH (08:08)
[2019-07-04] MEDS: PANTOPRAZOLE 40 MG TABLET.DR PO SCH (08:08)
[2019-07-04 08:10] VITALS: BP 146/76
[2019-07-04] MEDS: LISINOPRIL (10MG) 10 MG TABLET PO SCH (08:10)
[2019-07-04] MEDS: ESCITALOPRAM OXALATE (10 MG) 10 MG TABLET PO SCH (08:10)
--- NOTE | 2019-07-04 08:40 | NUR ---
TELE/RN NOTE THE PATIENT DECIED TO LEAVE AMA DESPITE EXPLAINING RISKS AND BENEFITS AND ENCOURAGING TO WAIT FOR MD. THE PATIENT STATED " I HAVE TO SEE MY MOM, I ALREADY HAVE A TICKET AND HAVE THINGS TO DO. CAN`T WAIT". PATIENT SIGNED AMA AND LEFT THE HOSPITAL IN STABLE CONDITION. NO COMPLAINS OF PAIN OR SOB. RESPIRATION REGULAR AND UNLABORED. Addendum: 07/04/19 at 1006 by WILLIAM VILLALTA RN RN NOTE JESSE VILLALTA IS MADE AWARE OF PATIENT LEAVING AMA.
[2019-07-04 08:55] LABS: LYMPHOCYTES % (MANUAL) 23 % (16-48); MONOCYTES % (MANUAL) 15 % (0-11.0); NEUTROPHILS % (MANUAL) 62 (42-76)
[2019-07-04] MEDS ORDERED: SPIRONOLACTONE 25 MG TABLET PO SCH (09:00)
== END 2019-07-04 10:47 | disposition left against medical advice (07) | DRG 280 ==
LOC: ER 21:54 → TELE2 07-02 00:02 → TELE1 07-02 00:20 → TELE 07-02 01:59 → MED 07-04 09:13
PROVIDERS: ADMIT Hospitalist; ATTEND Registered Nurse
PROC: 0W9G3ZZ Drainage of Peritoneal Cavity, Percutaneous Approach (ICD-10-PCS; principal; 2019-07-02)
DX: K70.31 Alcoholic cirrhosis of liver with ascites (principal); I21.A1 Myocardial infarction type 2; D61.818 Other pancytopenia; E44.0 Moderate protein-calorie malnutrition; K86.0 Alcohol-induced chronic pancreatitis; E83.39 Other disorders of phosphorus metabolism; E88.09 Other disorders of plasma-protein metabolism, not elsewhere classified; I10 Essential (primary) hypertension; E66.9 Obesity, unspecified; E87.6 Hypokalemia; Z68.32 Body mass index [BMI] 32.0-32.9, adult; F17.210 Nicotine dependence, cigarettes, uncomplicated; Z91.19 Patient's noncompliance with other medical treatment and regimen
CPT/HCPCS: 36415; 71045-TC; 76942-TC; 80048-TC; 80053-TC; 80061-TC; 80076-TC; 83605-TC; 83690-TC; 83735-TC; 83880; 84100-TC; 84484-TC; 85025-TC; 85730-TC; 87070-TC; 87081-TC; 88112-TC; 88305-TC; 88312-TC; 89051-TC; A4216; G0378; J2270; J3475; J7050; P9047

== ENCOUNTER 2019-12-15 18:46 | Inpatient (IN) | payer MEDICARE, OTHER ==
[2019-12-15] VITALS (8 sets, daily range): BP systolic 138–159; BP diastolic 86–99
[~2019-12-15] VITALS: Ht 170.2 cm; Wt 98.0 kg
[~2019-12-15 18:46] MED LIST changes: +ALPR2TAB7 PO; +CELE200C PO; -CYCL15DR16 EACHEYE; +ESCI10TA PO; -FOLI1TAB16 PO; -FURO10VI PO; +FURO40TA5 PO; +HYDR-3980 PO; +LISI10TA5 PO; +PROP20TA19 PO; -PYRI50TA15 PO; -SPIR25TA PO; +SPIR50TA PO; -THIA100T13 PO; +TRAZ-252 PO
--- NOTE | 2019-12-15 19:16 | NUR ---
BIBS FROM HOME TO ER BED 7. AAOX4. NOT IN RESP DISTRESS, BRAETHING EVEN AND UNLABORED. AMBULATORY. CAME IN FOR ABDOMINAL PAIN THAT HAS BEEN WORSENING FOR THE PAST 2 WEEKS 2ND TO BADOMINAL DISTENTION THAT HAS BEEN GOING ON FOR AWHILE PER PT. 8/10 PRESSURE. PT IS NOTED WITH ABDOMINAL DISTENTION, GLOBULAR IN SHAPE AND TENDER TO TOUCH. PT ALSO STATES THAT HE FEEL DIFFICULT TO BREATH BECAUSE OF THE DISTENTION, NOT IN DISTRESS THOU. WAS AT THE BEDSIDE FOR EVAL. ORDERS RECEIVED N0TED AND CARRIED OUT. IV LINE OBTAINED ON THE L AC 18G. BLOOD DRAWN AND GIVEN TO PICKING SUPERVISOR AT BEDSIDE. WILL CONTINUE TO MONITOT PT
[2019-12-15 19:20] LABS: BASOPHILS % (AUTO) 0.2 % (0.0-2.0); EOSINOPHILS % (AUTO) 1.3 % (0.0-6.0); HEMATOCRIT 34 % (39-51); HEMOGLOBIN 11.8 g/dL (13.5-17.5); LYMPHOCYTES # (AUTO) 0.9 /CMM (0.8-4.8); LYMPHOCYTES % (AUTO) 19.1 % (20.0-44.0); MEAN CORPUSCULAR HGB CONC 35 g/dl (31.0-36.0); MEAN CORPUSCULAR VOLUME 102 fL (80-96); MONOCYTES # (AUTO) 0.9 /CMM (0.1-1.30); MONOCYTES % (AUTO) 20.5 % (2.0-12.0); NEUTROPHILS # (AUTO) 2.7 /CMM (1.8-8.9); NEUTROPHILS % (AUTO) 58.9 % (43.0-81.0); PLATELET COUNT (AUTO) 121 /CMM (150-450); RED BLOOD CELL COUNT(AUTO) 3.33 MIL/uL (4.5-6.0); WHITE BLOOD COUNT (AUTO) 4.6 K/uL (4.3-11.0)
[2019-12-15 19:29] LABS: CALCIUM, SERUM 7.5 mg/dL (8.5-10.1); CREATININE 0.8 mg/dL (0.6-1.3)
[2019-12-15 19:35] LABS: ALBUMIN 2.1 g/dL (3.4-5.0); BILIRUBIN,DIRECT 3.7 mg/dL (0.0-0.2); BILIRUBIN,TOTAL 4.5 mg/dL (0.2-1.0); TOTAL PROTEIN, SERUM 8.7 g/dL (6.4-8.2)
[2019-12-15 19:38] LABS: APPEARANCE,URINE Slightly Cloudy (CLEAR); BILIRUBIN,URINE LARGE (NEGATIVE); BLOOD, URINE Small Ery/uL (NEGATIVE); COLOR,URINE Orange (YELLOW); KETONES,URINE Trace (NEGATIVE); LEUKOCYTE ESTERASE ,URINE Negative (NEGATIVE); NITRITE, URINE Negative (NEGATIVE); PROTEIN,URINE Negative (NEGATIVE); UGLUCOSE Negative (NEGATIVE)
[2019-12-15 19:51] LABS: BACTERIA,URINE None seen /HPF (None Seen); SQUAMOUS EPITHELIAL CELL,UR Few /HPF (None Seen); WBC,URINE 0-2 /HPF (0-3)
[2019-12-15 19:53] LABS: EOSINOPHILS % (MANUAL) 1 % (0-4); LYMPHOCYTES % (MANUAL) 16 % (16-48); MONOCYTES % (MANUAL) 11 % (0-11.0); NEUTROPHILS % (MANUAL) 71 (42-76); REACTIVE LYMPHOCYTES 1 % (0-0)
[2019-12-15] MEDS ORDERED: ALBUMIN 25% 12.5 GM/50 ML BOTTLE IV ONE (21:00)
[2019-12-15] MEDS ORDERED: ALBUMIN 25% 100 ML IV ONE ×2 (21:06→21:18)
--- NOTE | 2019-12-15 21:18 | NUR ---
BED 324-1
--- NOTE | 2019-12-15 21:26 | NUR ---
ALBUMIN 50GM ORDERS BY MD. ER ONLY HAVE 2 BOTTLES = 25GM. 2 BOTTLES OF ALBUMIN 12.5GM /50ML PULLED FROM ICU D/T OUT OF STOCK IN ER.
--- NOTE | 2019-12-15 21:38 | NUR ---
REPORT GIVEN TO ALISSA SOUSA FOR ERIK.
--- NOTE | 2019-12-15 22:05 | NUR ---
PT TRANSPORTED TO UNIT ON WHEELCHAIR WITH EMT AT BEDSIDE. PT IS IN STABLE CONDITION FOR TRANSPORT TO UNIT. PT AMBULATED FROM WHEELCHAIR TO BED.
--- NOTE | 2019-12-15 22:15 | NUR ---
RN OPENING NOTES PT ARRIVED FROM ER VIA WHEELCHAIR. A/OX4. ON ROOM AIR, BREATHING EVEN AND UNLABORED. IN NO ACUTE DISTRESS. IV TO LAC PATENT AND INTACT. ORIENTED PT TO ROOM AND CALL LIGHT. SIDE RAILS UPX3. BED ALARM ON FOR SAFETY. BED IN LOW/LOCKED POSITION WITH CALL LIGHT IN REACH. WILL CONTINUE TO MONITOR
[2019-12-15] MEDS ORDERED: POTASSIUM CHLORIDE 20 MEQ TAB.PRT.SR PO ONE (22:30)
[2019-12-15] MEDS ORDERED: ONDANSETRON HCL/PF 4 MG/2 ML VIAL IVP PRN (22:30)
[2019-12-15] MEDS ORDERED: ALPRAZOLAM 1 MG TABLET PO PRN (22:30)
[2019-12-15] MEDS ORDERED: HYDROCODONE/APAP 10/325MG 1 EA TABLET PO PRN (22:30)
[2019-12-15] MEDS ORDERED: TRAZODONE 50 MG TABLET PO PRN (22:30)
[2019-12-15] MEDS ORDERED: ACETAMINOPHEN 325 MG TABLET PO PRN (22:30)
[2019-12-15] MEDS ORDERED: Z GUARD REMEDY 2 OZ OINT TP PRN (22:30)
--- NOTE | 2019-12-15 22:50 | NUR ---
RN NOTES OBTAINED CONSENT FOR PARACENTESIS
[2019-12-15] MEDS ORDERED: MORPHINE SULFATE INJ 2 MG/ML DISP.SYRIN IV PRN (23:30)
[2019-12-16] VITALS (8 sets, daily range): BP systolic 133–153; BP diastolic 74–84
--- NOTE | 2019-12-16 00:15 | NUR ---
PT TOLERATED PARACENTESIS WELL. APPROX 7.5L OUT. PER MD, NO NEED TO SEND SPECIMEN TO LAB
[2019-12-16] MEDS: RIFAXIMIN 550 MG TABLET PO SCH ×3 (03:01→16:50)
[2019-12-16 04:58] LABS: BASOPHILS % (AUTO) 0.5 % (0.0-2.0); EOSINOPHILS % (AUTO) 1.4 % (0.0-6.0); HEMATOCRIT 34 % (39-51); HEMOGLOBIN 11.3 g/dL (13.5-17.5); LYMPHOCYTES # (AUTO) 0.8 /CMM (0.8-4.8); MEAN CORPUSCULAR HGB CONC 34 g/dl (31.0-36.0); MEAN CORPUSCULAR VOLUME 102 fL (80-96); MONOCYTES # (AUTO) 0.8 /CMM (0.1-1.30); MONOCYTES % (AUTO) 20.3 % (2.0-12.0); NEUTROPHILS # (AUTO) 2.2 /CMM (1.8-8.9); NEUTROPHILS % (AUTO) 57.8 % (43.0-81.0); PLATELET COUNT (AUTO) 102 /CMM (150-450); WHITE BLOOD COUNT (AUTO) 3.8 K/uL (4.3-11.0)
[2019-12-16 05:08] LABS: ALBUMIN 2.2 g/dL (3.4-5.0); BILIRUBIN,TOTAL 3.8 mg/dL (0.2-1.0); CALCIUM, SERUM 7.4 mg/dL (8.5-10.1); CREATININE 0.7 mg/dL (0.6-1.3); MAGNESIUM 1.4 mg/dL (1.8-2.4); PHOSPHORUS 2.7 mg/dL (2.5-4.9); POTASSIUM 2.9 mmol/L (3.5-5.1); TOTAL PROTEIN, SERUM 7.2 g/dL (6.4-8.2)
[2019-12-16 05:13] LABS: THYROID STIMULATING HORMONE 3.794 uIU/mL (0.358-3.74)
[2019-12-16 05:50] LABS: BAND % (MANUAL) 2 % (0.0-5.0); LYMPHOCYTES % (MANUAL) 20 % (16-48); MONOCYTES % (MANUAL) 13 % (0-11.0)
[2019-12-16 05:51] LABS: NEUTROPHILS % (MANUAL) 65 (42-76)
--- NOTE | 2019-12-16 06:43 | NUR ---
AM LABS RELAYED AM POTASSIUM 2.9 AND MAGNESIUM 1.4 TO MD. WITH ORDERS TO REPLACE WITH KDUR 40MEQ PO X1 AND MAGNESIUM SULFATE 4GM IV
[2019-12-16] MEDS ORDERED: POTASSIUM CHLORIDE 20 MEQ TAB.PRT.SR PO ONE (07:00)
--- NOTE | 2019-12-16 07:20 | NUR ---
RN CLOSING NOTES PT RESTING COMFORTABLY IN BED. A/OX4. ON ROOM AIR, BREATHING EVEN AND UNLABORED. DENIES SOB AND PAIN. IV TO LAC PATENT AND INTACT. BP STABLE AFTER PARACENTESIS. NO SIGNIFICANT CHANGES OVERNIGHT. ALL NEEDS MET. BED REMAINS IN LOW/LOCKED POSITION WITH CALL LIGHT IN REACH. SIDE RAILS UPX3 AND BED ALARM ON FOR SAFETY. ENDORSED TO RN ERIK.
[2019-12-16] MEDS: PANTOPRAZOLE 40 MG TABLET.DR PO SCH (07:48)
[2019-12-16] MEDS: Magnesium 1GM/D5W 100ML PREMIX 100 ML IV SCH ×4 (08:00→11:57)
--- NOTE | 2019-12-16 08:00 | NUR ---
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 able to ambulate without difficulty. no c/o pain. abdomen distended, s/p paracentesis yesterday. no c/o sob or any discomfort. instructed to call for assistance.
[2019-12-16] MEDS: PROPRANOLOL HCL 10 MG TABLET PO SCH ×2 (08:24→20:44)
[2019-12-16] MEDS: LISINOPRIL (10MG) 10 MG TABLET PO SCH (08:25)
[2019-12-16] MEDS: FUROSEMIDE 40 MG TABLET PO SCH (08:25)
[2019-12-16] MEDS: AMLODIPINE BESYLATE 10 MG TABLET PO SCH (08:25)
[2019-12-16] MEDS: ESCITALOPRAM OXALATE (10 MG) 10 MG TABLET PO SCH (08:25)
[2019-12-16] MEDS ORDERED: SPIRONOLACTONE 25 MG TABLET PO SCH (09:00)
--- NOTE | 2019-12-16 09:15 | NUR ---
m/s authorizer: md visit seen and examined by dr. yanez with new orders. orders acknowledged.
--- NOTE | 2019-12-16 10:00 | NUR ---
m/s clam bed worker: notes up with physical therapist at this time.
[2019-12-16] MEDS: FOLIC ACID 1 MG TABLET PO SCH (10:31)
[2019-12-16] MEDS: ENSURE ENLIVE CHOC 237 ML CAN PO SCH ×2 (11:26→16:52)
--- NOTE | 2019-12-16 14:10 | NUR ---
m/s transportation engineer: nephro f/u seen by dr. gonzales with new orders. orders acknowledged. urine clean catch collected and sent to lab.
[2019-12-16 15:06] LABS: CHLORIDE,URINE RANDOM 151 mmol/L (55-125); POTASSIUM RNDM,URINE 15 mmol/L (25-125); URINE SODIUM, RANDOM 152 mmol/l (40-220)
[2019-12-16 15:29] LABS: OSMOLALITY,URINE 378 mOS/kg (340-1090)
[2019-12-16] MEDS: SPIRONOLACTONE 25 MG TABLET PO SCH (16:50)
--- NOTE | 2019-12-16 17:00 | NUR ---
m/s baker doughnut: notes dinner served. instructed to call for assistance. will continue to monitor.
--- NOTE | 2019-12-16 19:00 | NUR ---
m/s confectionery maker: notes report given to gabriela monge) for continuity of care.
--- NOTE | 2019-12-16 20:00 | NUR ---
MS RN OPENING NOTES RECEIVED PATIENT IN BED, AWAKE, CONSCIOUS, COOPERATIVE, AMBULATORY WITHOUT ASSIST, BREATHING AT ROOM AIR, UNLABORED BREATHING, NO SIGNS OF RESPIRATORY DISTRESS, SL LAC #18G, SIDE RAILS UP.
--- NOTE | 2019-12-16 21:45 | NUR ---
MS RN NOTES PATIENT HAS FEVER. TEMP- 101.3. TYLENOL 650MG PO GIVEN.
--- NOTE | 2019-12-16 22:51 | NUR ---
MS RN NOTES PATIENT'S TEMP. IS 99.5.
--- NOTE | 2019-12-17 04:16 | NUR ---
MS RN NOTES PATIENT'S TEMP. IS 98.9.
--- NOTE | 2019-12-17 06:46 | NUR ---
MS RN CLOSING NOTES ENDORSED PATIENT IN BED, AWAKE, CONSCIOUS, COOPERATIVE, AMBULATORY WITHOUT ASSIST, BREATHING AT ROOM AIR, UNLABORED BREATHING, NO SIGNS OF RESPIRATORY DISTRESS, SL LAC #18G, NO REDNESS OR INFILTRATION NOTED, SIDE RAILS UP FOR SAFETY, DUE MEDS GIVEN.
--- NOTE | 2019-12-17 07:30 | NUR ---
RN Opening note Received patient in bed, AO x 4 able to responds all stimuli. Does no c/o pain or distress for s/p paracentesis. Skin is warm to touch, kept clean/dry. Respiratory even and unlabored in room air. Keep bed in lock with elevated HOB for ensure airway and aspiration precaution. Call light within reach, will continue to monitor.
[2019-12-17] MEDS: PANTOPRAZOLE 40 MG TABLET.DR PO SCH (07:47)
[2019-12-17 08:00] VITALS: BP 149/84
[2019-12-17 08:19] LABS: ALBUMIN 2.3 g/dL (3.4-5.0); CALCIUM, SERUM 8.4 mg/dL (8.5-10.1); CREATININE 0.6 mg/dL (0.6-1.3); MAGNESIUM 1.6 mg/dL (1.8-2.4); PHOSPHORUS 2.2 mg/dL (2.5-4.9); POTASSIUM 3.6 mmol/L (3.5-5.1); TOTAL PROTEIN, SERUM 8.2 g/dL (6.4-8.2)
[2019-12-17] MEDS: FUROSEMIDE 40 MG TABLET PO SCH (08:21)
[2019-12-17] MEDS: ESCITALOPRAM OXALATE (10 MG) 10 MG TABLET PO SCH (08:21)
[2019-12-17] MEDS: RIFAXIMIN 550 MG TABLET PO SCH (08:21)
[2019-12-17] MEDS: AMLODIPINE BESYLATE 10 MG TABLET PO SCH (08:22)
[2019-12-17] MEDS: LISINOPRIL (10MG) 10 MG TABLET PO SCH (08:22)
[2019-12-17 08:23] VITALS: BP 149/84
[2019-12-17] MEDS: FOLIC ACID 1 MG TABLET PO SCH (08:23)
[2019-12-17] MEDS: ENSURE ENLIVE CHOC 237 ML CAN PO SCH (08:23)
[2019-12-17] MEDS: PROPRANOLOL HCL 10 MG TABLET PO SCH (08:23)
[2019-12-17] MEDS: SPIRONOLACTONE 25 MG TABLET PO SCH (08:23)
[2019-12-17] MEDS: Magnesium 1GM/D5W 100ML PREMIX 100 ML IV SCH ×2 (09:44→10:54)
[2019-12-17] MEDS ORDERED: NEUTRA PHOS 1 POWD.PACKET NG ONE (10:30)
--- NOTE | 2019-12-17 13:50 | NUR ---
Given discharge instruction include pickup prescriptions and f/u PCP in 1week, pt verbally understanding, denies pain or distress, in stable condition.
== END 2019-12-17 14:00 | disposition home or self-care (01) | DRG 432 ==
LOC: ER 18:51 → MED 21:20
PROVIDERS: ADMIT Nurse Practitioner Acute Care; ATTEND Nurse Practitioner Acute Care
PROC: 0W9G3ZZ Drainage of Peritoneal Cavity, Percutaneous Approach (ICD-10-PCS; principal; 2019-12-16)
DX: K70.31 Alcoholic cirrhosis of liver with ascites (principal); E43 Unspecified severe protein-calorie malnutrition; I21.4 Non-ST elevation (NSTEMI) myocardial infarction; K76.6 Portal hypertension; D68.9 Coagulation defect, unspecified; E72.20 Disorder of urea cycle metabolism, unspecified; K86.1 Other chronic pancreatitis; E87.6 Hypokalemia; D69.6 Thrombocytopenia, unspecified; E83.42 Hypomagnesemia; E80.6 Other disorders of bilirubin metabolism; D53.9 Nutritional anemia, unspecified; I10 Essential (primary) hypertension; M19.90 Unspecified osteoarthritis, unspecified site; F32.9 Major depressive disorder, single episode, unspecified; F10.20 Alcohol dependence, uncomplicated; Z91.14 Patient's other noncompliance with medication regimen; E88.09 Other disorders of plasma-protein metabolism, not elsewhere classified; Z68.33 Body mass index [BMI] 33.0-33.9, adult; G89.29 Other chronic pain; M54.9 Dorsalgia, unspecified; F41.9 Anxiety disorder, unspecified; F17.210 Nicotine dependence, cigarettes, uncomplicated; D75.89 Other specified diseases of blood and blood-forming organs; I25.2 Old myocardial infarction; R74.0 Nonspecific elevation of levels of transaminase and lactic acid dehydrogenase [LDH]
CPT/HCPCS: 36415; 71045-TC; 80048-TC; 80053-TC; 80061-TC; 80076-TC; 81000-TC; 82140-TC; 82436-TC; 83540-TC; 83690-TC; 83735-TC; 83935-TC; 84100-TC; 84133-TC; 84300-TC; 84439-TC; 84443-TC; 84484-TC; 85025-TC; 85610-TC; 85730-TC; 87081-TC; 93307-TC; 97116-TC; 97530-TC; A6403; G0378; J2270; J3475; J7050; P9047

== ENCOUNTER 2020-03-18 18:47 | Inpatient (IN) | payer MEDICARE, OTHER ==
[~2020-03-18] VITALS: Ht 172.7 cm; Wt 104.1 kg
[~2020-03-18 18:47] MED LIST changes: -PANT40TA4 PO; +PANT40TA49 PO
--- NOTE | 2020-03-18 18:54 | NUR ---
CAME IN FOR ABD DISTENTION & SOB. LAST PARACENTESIS WAS 3 MOS AGO PER PT, Hx OF LIVER CIRRHOSIS. TO ER BED 10, HOOKED TO SUPERINTENDENT DRILLING AND PRODUCTION, BP CUFF AND POX, CHANGED TO HOSP GOWN, WARM BLANKET PROVIDED, PATIENT AAOx 4. NAD NOTED. AWAITING MD BORJA.
--- NOTE | 2020-03-18 19:02 | NUR ---
DR SCHWARTZ AT BEDSIDE
--- NOTE | 2020-03-18 19:18 | NUR ---
CORPORATE QUALITY MANAGER AT BEDSIDE FOR XRAY
--- NOTE | 2020-03-18 19:20 | NUR ---
BLOOD DRAWN AND SENT TO THE LAB.
--- NOTE | 2020-03-18 19:33 | NUR ---
COVID SWAB COLLECTED, CALLED LAB FOR GLOVE EXAMINER
[2020-03-18 19:43] LABS: ALCOHOL, BLOOD 266 mg/dL (0-0)
[2020-03-18 19:44] LABS: SERUM AMMONIA 67 umol/L (11-32)
[2020-03-18 19:45] LABS: CALCIUM, SERUM 7.5 mg/dL (8.5-10.1); CREATININE 0.8 mg/dL (0.6-1.3)
[2020-03-18 19:46] LABS: POTASSIUM 2.8 mmol/L (3.5-5.1)
[2020-03-18 19:52] LABS: ALBUMIN 1.9 g/dL (3.4-5.0); BILIRUBIN,DIRECT 5.4 mg/dL (0.0-0.2); BILIRUBIN,TOTAL 6.5 mg/dL (0.2-1.0); TOTAL PROTEIN, SERUM 8.6 g/dL (6.4-8.2)
[2020-03-18 20:08] LABS: BASOPHILS % (AUTO) 1.1 % (0.0-2.0); HEMATOCRIT 33 % (39-51); HEMOGLOBIN 11.5 g/dL (13.5-17.5); LYMPHOCYTES # (AUTO) 0.9 /CMM (0.8-4.8); LYMPHOCYTES % (AUTO) 20.2 % (20.0-44.0); MEAN CORPUSCULAR HGB CONC 35 g/dl (31.0-36.0); MEAN CORPUSCULAR VOLUME 106 fL (80-96); MONOCYTES # (AUTO) 0.5 /CMM (0.1-1.30); MONOCYTES % (AUTO) 12.1 % (2.0-12.0); NEUTROPHILS # (AUTO) 2.9 /CMM (1.8-8.9); NEUTROPHILS % (AUTO) 65.6 % (43.0-81.0); PLATELET COUNT (AUTO) 134 /CMM (150-450); RED BLOOD CELL COUNT(AUTO) 3.15 MIL/uL (4.5-6.0); WHITE BLOOD COUNT (AUTO) 4.4 K/uL (4.3-11.0)
--- NOTE | 2020-03-18 20:12 | NUR ---
REC'D NEG COVID RESULTS. AWARE
--- NOTE | 2020-03-18 20:27 | NUR ---
called [facility]. food preparation kitchen aide was paged
[2020-03-18] MEDS ORDERED: LACTULOSE 10 G/15 ML UDC (PYXIS) PO ONE (20:30)
[2020-03-18] MEDS: POTASSIUM CL. PREMIX PERIPHER. 50 ML IV SCH ×4 (20:48→23:48)
[2020-03-18] MEDS: Magnesium 1GM/D5W 100ML PREMIX 100 ML IV SCH ×2 (20:48→21:52)
[2020-03-18 21:04] LABS: BAND % (MANUAL) 3 % (0.0-5.0); EOSINOPHILS % (MANUAL) 3 % (0-4); LYMPHOCYTES % (MANUAL) 23 % (16-48); MONOCYTES % (MANUAL) 6 % (0-11.0); NEUTROPHILS % (MANUAL) 65 (42-76)
--- NOTE | 2020-03-18 21:44 | NUR ---
CALLED FOR REPORT, NURSE STATES THAT SHE WILL CALL BACK.
--- NOTE | 2020-03-18 21:49 | NUR ---
REPORT GIVEN TO CASE MAXWELL FOR ERIK.
[2020-03-18 22:00] VITALS: BP 143/84
--- NOTE | 2020-03-18 22:00 | NUR ---
RN NOTES RECEIVED PT. FROM ER ADMITTED FOR ASCITES AND CAD, A/OX4, SR ON TELE MONITOR HR-89, PT.'S ABDOMEN IS DISTENDED, ABDOMINAL GIRTH IS 123 CM, ADMISSION INSTRUCTION WAS RENDERED, BED IN LOW POSITION, CALL LIGHT WITHIN REACH, [id number], CONTINUE TO MONITOR
--- NOTE | 2020-03-18 22:01 | NUR ---
patient taken to assigned room for gilda.
[2020-03-18] MEDS ORDERED: MORPHINE SULFATE INJ 2 MG/ML DISP.SYRIN IV PRN (22:30)
[2020-03-18] MEDS ORDERED: ACETAMINOPHEN 325 MG TABLET PO PRN (22:30)
[2020-03-18] MEDS ORDERED: TRAZODONE 50 MG TABLET PO PRN (22:30)
[2020-03-18] MEDS ORDERED: ZOLPIDEM TARTRATE 5 MG TABLET PO PRN (22:30)
[2020-03-18] MEDS ORDERED: ONDANSETRON HCL/PF 4 MG/2 ML VIAL IVP PRN (22:30)
[2020-03-18] MEDS ORDERED: LACTULOSE 10 G/15 ML UDC (PYXIS) PO PRN (22:30)
[2020-03-19] VITALS: BP 143/84
--- NOTE | 2020-03-19 00:30 | NUR ---
RN NOTES DR. CROSS CAME AND TALKED TO THE PATIENT
[2020-03-19] MEDS: POTASSIUM CL. PREMIX PERIPHER. 50 ML IV SCH ×6 (01:04→14:44)
[2020-03-19 04:00] VITALS: BP 152/93
--- NOTE | 2020-03-19 06:30 | NUR ---
RN NOTES SLEEPING BUT AROUSABLE, NOT IN DISTRESS, DENIES PAIN, NO SOB, MORNING CARE RENDERED, CALL LIGHT WITHIN REACH, [id number], PT. NEEDS ATTENDED
[2020-03-19 06:37] LABS: BASOPHILS % (AUTO) 0.7 % (0.0-2.0); EOSINOPHILS % (AUTO) 0.8 % (0.0-6.0); HEMATOCRIT 31 % (39-51); HEMOGLOBIN 10.7 g/dL (13.5-17.5); LYMPHOCYTES # (AUTO) 0.9 /CMM (0.8-4.8); LYMPHOCYTES % (AUTO) 20.3 % (20.0-44.0); MEAN CORPUSCULAR HGB CONC 35 g/dl (31.0-36.0); MEAN CORPUSCULAR VOLUME 104 fL (80-96); MONOCYTES # (AUTO) 0.6 /CMM (0.1-1.30); MONOCYTES % (AUTO) 12.9 % (2.0-12.0); NEUTROPHILS % (AUTO) 65.3 % (43.0-81.0); PLATELET COUNT (AUTO) 117 /CMM (150-450); RED BLOOD CELL COUNT(AUTO) 2.93 MIL/uL (4.5-6.0); WHITE BLOOD COUNT (AUTO) 4.5 K/uL (4.3-11.0)
[2020-03-19 07:03] LABS: ALBUMIN 1.8 g/dL (3.4-5.0); BILIRUBIN,TOTAL 5.9 mg/dL (0.2-1.0); CALCIUM, SERUM 7.3 mg/dL (8.5-10.1); CREATININE 0.8 mg/dL (0.6-1.3); MAGNESIUM 1.3 mg/dL (1.8-2.4); PHOSPHORUS 2.3 mg/dL (2.5-4.9); POTASSIUM 2.9 mmol/L (3.5-5.1); TOTAL PROTEIN, SERUM 8.1 g/dL (6.4-8.2)
--- NOTE | 2020-03-19 07:45 | NUR ---
RN NOTE THE PATIENT IS RECEIVED IN BED. THE PATIENT IS ALERT AND ORIENTED X4. IN ROOM AIR AND DENIES SOB. RESPIRATION REGULAR AND UNLABORED. DENIES PAIN. THE PATIENT IN NO APPARENT DISTRESS. RAC G 18 PATENT AND SALINE LOCKED. EXTERNAL TELE BOX READING IS SINUS TACHYCARDIA 112. BED LOW AND LOCKED. SIDE RAILS UP X2. CALL LIGHT WITHIN REACH. WILL CONTINUE TO MONITOR.
[2020-03-19 08:00] VITALS: BP 148/96
[2020-03-19] MEDS ORDERED: NEUTRA PHOS 1 POWD.PACKET PO ONE (08:00)
[2020-03-19] MEDS ORDERED: ASPIRIN EC 325 MG TABLET.DR PO SCH (09:00)
[2020-03-19] MEDS ORDERED: SPIRONOLACTONE 50 MG TABLET PO SCH (09:00)
[2020-03-19] MEDS ORDERED: LORAZEPAM INJ 2 MG/ML VIAL IV PRN (09:00)
[2020-03-19] MEDS ORDERED: PROPRANOLOL HCL 10 MG TABLET PO SCH (09:00)
[2020-03-19] MEDS: FOLIC ACID 1 MG TABLET PO SCH (09:11)
[2020-03-19] MEDS: ASPIRIN EC 81 MG TABLET.DR PO SCH (09:12)
[2020-03-19] MEDS: SPIRONOLACTONE 25 MG TABLET PO SCH (09:12)
[2020-03-19] MEDS: ESCITALOPRAM OXALATE (10 MG) 10 MG TABLET PO SCH (09:12)
[2020-03-19] MEDS: MULTIVITAMINS,THERAGRAN 1 UDTAB TABLET PO SCH (09:12)
[2020-03-19] MEDS: FUROSEMIDE 40 MG TABLET PO SCH (09:12)
[2020-03-19] MEDS: AMLODIPINE BESYLATE 10 MG TABLET PO SCH (09:12)
[2020-03-19] MEDS: THIAMINE HCL 100 MG TABLET PO SCH (09:12)
[2020-03-19] MEDS: Magnesium 1GM/D5W 100ML PREMIX 100 ML IV SCH ×3 (09:26→13:41)
[2020-03-19] MEDS: PANTOPRAZOLE 40 MG TABLET.DR PO SCH (09:28)
[2020-03-19 12:00] VITALS: BP 132/88
--- NOTE | 2020-03-19 13:30 | NUR ---
RN NOTE PAACENTESIS DONE BY DR VAN AND 2600 ML FLUID IS REMOVED. THE FLUID IS SENT TO LAB.
--- NOTE | 2020-03-19 13:35 | NUR ---
RN NOTE RECEIVED AN ORDER FROM JESSE HERBERT TO DO CYTOLOGY AND GRAM STAIN FOR PARACENTESIS FLUID. NOTED AND CARRIED OUT.
[2020-03-19] MEDS: PROPRANOLOL HCL 10 MG TABLET PO SCH ×2 (13:52→17:26)
[2020-03-19 16:00] VITALS: BP 136/83
--- NOTE | 2020-03-19 18:11 | NUR ---
RN NOTE THE PATIENT ALERT AND ORIENTED X4. DENIES PAIN. IN ROOM AIR AND SATURATION IS AT 97%. DENIES SOB. RESPIRATION REGULAR AND UNLABORED. TELE BOX READING IS SR. THE PATIENT IN NO APPARENT DISTRESS. BED LOW AND LOCKED. SIDE RAILS UP X2. CALL LIGHT WITHIN REACH. WILL ENDORSE TO PHARMACEUTICAL ANALYST.
--- NOTE | 2020-03-19 19:00 | NUR ---
RN OPENING NOTES Received patient A/O x4, awake resting on bed. On RA, no new complaints made at this time. On tele monitor with NSR noted. Kept on bed clean, dry and comfortable. Call light within reach. Will continue to monitor accordingly.
[2020-03-19 20:00] VITALS: BP 141/66
[2020-03-20] VITALS: BP 148/74
[2020-03-20] MEDS: PROPRANOLOL HCL 10 MG TABLET PO SCH ×5 (01:38→23:41)
[2020-03-20 02:52] VITALS: BP 148/74
[2020-03-20 04:00] VITALS: BP 149/85
--- NOTE | 2020-03-20 06:27 | NUR ---
RN CLOSING NOTES Pt asleep on bed. On RA. No complaints made within the shift. On tele monitor with NSR noted. All nursing needs attended, due meds given as ordered. Kept on bed clean, dry and comfortable. Endorsed.
[2020-03-20 06:54] LABS: CALCIUM, SERUM 7.5 mg/dL (8.5-10.1); CREATININE 0.6 mg/dL (0.6-1.3); MAGNESIUM 1.4 mg/dL (1.8-2.4); PHOSPHORUS 2.2 mg/dL (2.5-4.9); POTASSIUM 3.4 mmol/L (3.5-5.1)
[2020-03-20 06:57] LABS: BASOPHILS % (AUTO) 0.8 % (0.0-2.0); EOSINOPHILS % (AUTO) 0.3 % (0.0-6.0); HEMATOCRIT 34 % (39-51); HEMOGLOBIN 11.8 g/dL (13.5-17.5); LYMPHOCYTES # (AUTO) 0.7 /CMM (0.8-4.8); LYMPHOCYTES % (AUTO) 15.2 % (20.0-44.0); MEAN CORPUSCULAR HGB CONC 35 g/dl (31.0-36.0); MEAN CORPUSCULAR VOLUME 106 fL (80-96); MONOCYTES # (AUTO) 0.6 /CMM (0.1-1.30); MONOCYTES % (AUTO) 12.1 % (2.0-12.0); NEUTROPHILS # (AUTO) 3.3 /CMM (1.8-8.9); NEUTROPHILS % (AUTO) 71.6 % (43.0-81.0); PLATELET COUNT (AUTO) 141 /CMM (150-450); RED BLOOD CELL COUNT(AUTO) 3.21 MIL/uL (4.5-6.0); WHITE BLOOD COUNT (AUTO) 4.7 K/uL (4.3-11.0)
--- NOTE | 2020-03-20 07:30 | NUR ---
RN MS NOTES PT IN BED, AWAKE, ALERT AND ORIENTED, NO COMPLAINT OF PAIN OR ANY DISCOMFORT, BREATHING PATTERN NORMAL, CALL LIGHT WITHIN REACH, KEPT WARM AND COMFORTABLE IN BED.
[2020-03-20 08:00] VITALS: BP 144/75
[2020-03-20] MEDS ORDERED: K PHOS NEUTRAL 250 MG TABLET PO ONE (08:00)
[2020-03-20] MEDS ORDERED: POTASSIUM CHLORIDE 20 MEQ TAB.PRT.SR PO ONE (08:00)
[2020-03-20] MEDS: PANTOPRAZOLE 40 MG TABLET.DR PO SCH (08:23)
[2020-03-20] MEDS: Magnesium 1GM/D5W 100ML PREMIX 100 ML IV SCH ×2 (08:23→10:35)
[2020-03-20] MEDS: ASPIRIN EC 81 MG TABLET.DR PO SCH (08:45)
[2020-03-20] MEDS: SPIRONOLACTONE 25 MG TABLET PO SCH (08:45)
[2020-03-20] MEDS: FUROSEMIDE 40 MG TABLET PO SCH (08:45)
[2020-03-20] MEDS: THIAMINE HCL 100 MG TABLET PO SCH (08:45)
[2020-03-20] MEDS: ESCITALOPRAM OXALATE (10 MG) 10 MG TABLET PO SCH (08:45)
[2020-03-20] MEDS: FOLIC ACID 1 MG TABLET PO SCH (08:45)
[2020-03-20] MEDS: MULTIVITAMINS,THERAGRAN 1 UDTAB TABLET PO SCH (08:45)
[2020-03-20] MEDS: AMLODIPINE BESYLATE 10 MG TABLET PO SCH (08:46)
[2020-03-20] MEDS ORDERED: NEUTRA PHOS 1 POWD.PACKET PO SCH (09:30)
[2020-03-20 16:00] VITALS: BP 126/82
--- NOTE | 2020-03-20 19:35 | NUR ---
MS RN NOTES RECEIVED RESTING COMFORTABLY ON BED,A/O X4,BREATHING EASY,NO SOB.ABDOMEN DISTENDED,S/P PARACENTESIS YESTERDAY ON LEFT SIDE ABDOMEN,DRESSING INTACT AND DRY.UMBILICAL HERNIA NOTED.SALINE LOCK RIGHT AC INTACT AND PATENT.AMBULATE WITH STEADY GAIT.DVT PUMP REFUSED FOR VTE SCORE OF 2.CALL LIGHT IN REACH,NEEDS ANTICIPATED.
--- NOTE | 2020-03-20 19:41 | NUR ---
RN MS CLOSING NOTES PATIENT RESTING COMFORTABLY IN BED, A/O X4, AMBULATORY, BRP, PATIENT IS INDEPENDENT AND ABLE TO DO ALL ADL'S. ON RA SATING 98-100%, IV TO RT AC #18;SL. BED AT LOWEST POSITION, AND LOCKED WITH SIDE RAILS UP X2 ALL SAFETY MEASURES IN PLACE, WILL ENDORSE TO LITHOGRAPHY CONTACT WORKER.
[2020-03-20 20:00] VITALS: BP_SYST 116; BP_SYST 124; BP_DIAS 72; BP_DIAS 75
[2020-03-21] MEDS: PROPRANOLOL HCL 10 MG TABLET PO SCH (05:51)
--- NOTE | 2020-03-21 06:47 | NUR ---
ROUNDHOUSE WORKER NOTES FAIRLY RESTED AT NIGHT,ABDOMEN REMAINS DISTENDED.AMBULATE WITH STEADY GAIT.NO DISTRESS.WILL ENDORSE TO DAY NURSE FOR ERIK.
[2020-03-21 06:57] LABS: BASOPHILS % (AUTO) 0.9 % (0.0-2.0); EOSINOPHILS % (AUTO) 0.2 % (0.0-6.0); HEMATOCRIT 36 % (39-51); HEMOGLOBIN 12.2 g/dL (13.5-17.5); LYMPHOCYTES # (AUTO) 0.7 /CMM (0.8-4.8); LYMPHOCYTES % (AUTO) 14.2 % (20.0-44.0); MEAN CORPUSCULAR HGB CONC 35 g/dl (31.0-36.0); MEAN CORPUSCULAR VOLUME 106 fL (80-96); MONOCYTES # (AUTO) 0.7 /CMM (0.1-1.30); MONOCYTES % (AUTO) 13.7 % (2.0-12.0); NEUTROPHILS # (AUTO) 3.6 /CMM (1.8-8.9); PLATELET COUNT (AUTO) 173 /CMM (150-450); RED BLOOD CELL COUNT(AUTO) 3.34 MIL/uL (4.5-6.0); WHITE BLOOD COUNT (AUTO) 5.1 K/uL (4.3-11.0)
[2020-03-21 07:18] LABS: CREATININE 0.8 mg/dL (0.6-1.3); MAGNESIUM 1.5 mg/dL (1.8-2.4); PHOSPHORUS 2.5 mg/dL (2.5-4.9); POTASSIUM 3.5 mmol/L (3.5-5.1)
--- NOTE | 2020-03-21 07:46 | NUR ---
MS RN OPENING NOTES RECEIVED PATIENT RESTING IN BED, AWAKE AND ALERT X4. AMBULATORY AND INDEPENDENT WITH ADL'S. ON RA. NO SOB NOTED, NO ACUTE RESPIRATORY DISTRESS. NO C/O PAIN. IV TO RT AC #18 PATENT AND INTACT WITH NO SIGNS OF REDNESS OR INFILTRATION, SALINE LOCKED. BED AT LOWEST POSITION LOCKED AND CALL LIGHT WITH IN REACH. ALL SAFETY MEASURES IN PLACE. WILL CONTINUE TO MONITOR PT THROUGH OUT SHIFT. .
[2020-03-21 08:00] VITALS: BP 125/77
[2020-03-21] MEDS: PANTOPRAZOLE 40 MG TABLET.DR PO SCH (08:29)
[2020-03-21] MEDS: ESCITALOPRAM OXALATE (10 MG) 10 MG TABLET PO SCH (08:30)
[2020-03-21] MEDS: FOLIC ACID 1 MG TABLET PO SCH (08:30)
[2020-03-21] MEDS: MULTIVITAMINS,THERAGRAN 1 UDTAB TABLET PO SCH (08:30)
[2020-03-21] MEDS: SPIRONOLACTONE 25 MG TABLET PO SCH (08:30)
[2020-03-21] MEDS: FUROSEMIDE 40 MG TABLET PO SCH (08:30)
[2020-03-21] MEDS: ASPIRIN EC 81 MG TABLET.DR PO SCH (08:30)
[2020-03-21] MEDS: THIAMINE HCL 100 MG TABLET PO SCH (08:31)
[2020-03-21 08:35] VITALS: BP 125/77
[2020-03-21] MEDS: AMLODIPINE BESYLATE 10 MG TABLET PO SCH (08:35)
[2020-03-21] MEDS ORDERED: MAGNESIUM OXIDE 400 MG TABLET PO ONE (09:00)
--- NOTE | 2020-03-21 12:30 | NUR ---
RN MS NOTES PT IN HIS ROOM, AWAKE, ALERT AND ORIENTED, NO COMPLAINT OF PAIN OR ANY DISCOMFORT, NOT IN DISTRESS, WALKING IN HIS ROOM WITH STEADY GAIT, SEEN BY DR. HERBERT, DISCHARGE ORDER GIVEN, DISCHARGE AND MEDICATION INSTRUCTIONS PROVIDED TO PT, VERBALIZED UNDERSTANDING, BELONGINGS ACCOUNTED FOR, PT REFUSED SKIN PHOTOS ON DISCHARGE, OFFERED FLU VACCINE BUT PT REFUSED, EXPLAINED RISKS AND BENEFITS, STILL REFUSED, PT'S BELONGINGS FROM SAFE GIVEN TO PT, ASSISTED PT TO HOSPITAL LOBBY, PICKED UP BY HIS FRIEND, LEFT IN STABLE CONDITION.
== END 2020-03-21 12:55 | disposition home or self-care (01) | DRG 432 ==
LOC: ER 19:10 → MED 21:33 → TELE 22:55 → MED 03-20 09:01
PROVIDERS: ADMIT Internal Medicine; ATTEND Nurse Practitioner Acute Care
PROC: 0W9G3ZZ Drainage of Peritoneal Cavity, Percutaneous Approach (ICD-10-PCS; principal; 2020-03-19)
DX: K70.31 Alcoholic cirrhosis of liver with ascites (principal); I21.A1 Myocardial infarction type 2; E43 Unspecified severe protein-calorie malnutrition; I50.31 Acute diastolic (congestive) heart failure; D61.818 Other pancytopenia; E87.6 Hypokalemia; D50.9 Iron deficiency anemia, unspecified; E88.09 Other disorders of plasma-protein metabolism, not elsewhere classified; E83.42 Hypomagnesemia; E83.39 Other disorders of phosphorus metabolism; E66.9 Obesity, unspecified; F41.9 Anxiety disorder, unspecified; G89.29 Other chronic pain; I25.2 Old myocardial infarction; Z87.891 Personal history of nicotine dependence; F10.129 Alcohol abuse with intoxication, unspecified; I11.0 Hypertensive heart disease with heart failure; H54.62 Unqualified visual loss, left eye, normal vision right eye; M19.90 Unspecified osteoarthritis, unspecified site; E80.6 Other disorders of bilirubin metabolism; Y90.8 Blood alcohol level of 240 mg/100 ml or more; Z68.34 Body mass index [BMI] 34.0-34.9, adult; K72.90 Hepatic failure, unspecified without coma
CPT/HCPCS: 36415; 71045-TC; 76942-TC; 80048-TC; 80053-TC; 80061-TC; 80076-TC; 82140-TC; 83540-TC; 83690-TC; 83735-TC; 83880; 84100-TC; 84484-TC; 85025-TC; 85730-TC; 87070-TC; 87081-TC; A6253; C9803; G0378; G0480; J3475; J3480; J7040; J7050

== ENCOUNTER → 2020-04-19 | Emergency (ER) | payer MEDICARE, OTHER ==
[~2020-04-19] VITALS: Ht 172.7 cm; Wt 105.3 kg
[~2020-04-19] MED LIST changes: +ALBUMIN 25% 100 ML IV ONE; +ALBUMIN 25% 12.5 GM/50 ML BOTTLE IV ONE; +AMLO-213 PO; -AMLO10TA7 PO; +ARIP30TA21 PO
--- NOTE | 2020-04-19 13:55 | NUR ---
PT BIB FRIEND C/O ETOH SINCE LAST NIGHT. PT IS AAOX3, NOT IN RESPIRATORY DISTRESS, V/S STABLE, KEPT RESTED AND COMFORTABLE. WILL CONTINUE TO MONITOR.
--- NOTE | 2020-04-19 14:13 | NUR ---
SEEN AND EXAMINED BY .
--- NOTE | 2020-04-19 14:25 | NUR ---
IV LINE ESTABLISHED BLOOD DRAWN AND SENT TO LAB.
[2020-04-19 14:43] LABS: BASOPHILS % (AUTO) 0.3 % (0.0-2.0); EOSINOPHILS % (AUTO) 0.8 % (0.0-6.0); HEMATOCRIT 36 % (39-51); LYMPHOCYTES % (AUTO) 24.9 % (20.0-44.0); MEAN CORPUSCULAR HGB CONC 33 g/dl (31.0-36.0); MEAN CORPUSCULAR VOLUME 103 fL (80-96); MONOCYTES # (AUTO) 0.5 /CMM (0.1-1.30); MONOCYTES % (AUTO) 11.9 % (2.0-12.0); NEUTROPHILS # (AUTO) 2.4 /CMM (1.8-8.9); NEUTROPHILS % (AUTO) 62.1 % (43.0-81.0); PLATELET COUNT (AUTO) 133 /CMM (150-450); WHITE BLOOD COUNT (AUTO) 3.9 K/uL (4.3-11.0)
[2020-04-19 14:59] LABS: CALCIUM, SERUM 7.2 mg/dL (8.5-10.1); CARBON DIOXIDE 27 mmol/L (21-32); CHLORIDE 108 mmol/L (98-107); CREATININE 0.8 mg/dL (0.6-1.3); GLUCOSE 92 mg/dL (74-106); POTASSIUM 3.1 mmol/L (3.5-5.1); SODIUM SERUM 144 mmol/L (136-145); UREA NITROGEN, BLOOD 2 mg/dL (7-18)
[2020-04-19 15:09] LABS: ALANINE AMINOTRANSFERASE 30 U/L (12-78); ALBUMIN 1.9 g/dL (3.4-5.0); ALKALINE PHOSPHATASE 129 U/L (46-116); ASPARTATE AMINOTRANSFERASE 107 U/L (15-37); BILIRUBIN,DIRECT 2.8 mg/dL (0.0-0.2); BILIRUBIN,TOTAL 3.1 mg/dL (0.2-1.0); TOTAL PROTEIN, SERUM 8.7 g/dL (6.4-8.2)
--- NOTE | 2020-04-19 16:46 | NUR ---
AT BEDSIDE FOR PARACENTESIS.
[2020-04-19 18:40] VITALS: BP 138/74
--- NOTE | 2020-04-19 18:49 | NUR ---
IV removed. Catheter intact and site benign. Pressure and 4x4 applied to site. No bleeding noted. Patient discharged to home in stable condition. Written and verbal after care instructions given. Patient verbalizes understanding of instruction.
== END | disposition home or self-care (01) ==
LOC: ER 13:57
DX: F10.129 Alcohol abuse with intoxication, unspecified (principal); K70.31 Alcoholic cirrhosis of liver with ascites; I10 Essential (primary) hypertension; M54.9 Dorsalgia, unspecified; G89.29 Other chronic pain; Y90.8 Blood alcohol level of 240 mg/100 ml or more; Z60.2 Problems related to living alone; Z79.899 Other long term (current) drug therapy
CPT/HCPCS: 36415; 49083; 71045; 80048; 80076; 80320; 84484; 85025; 85610; 85730; 87081; 93005; 96374; 99285; P9047; 76942-TC; G0480

== ENCOUNTER 2020-07-06 18:06 | Inpatient (IN) | payer MEDICARE, OTHER ==
[~2020-07-06] VITALS: Ht 172.7 cm; Wt 97.5 kg
[~2020-07-06 18:06] MED LIST changes: -ALBUMIN 25% 100 ML IV ONE; -ALBUMIN 25% 12.5 GM/50 ML BOTTLE IV ONE; +LISI10TA29 PO; -LISI10TA5 PO
--- NOTE | 2020-07-06 18:30 | NUR ---
bib son from home for abdominal pain and distension. umbilical hernia. On room air, connected to the monitor and pulse ox. kept comfortable, will continue to monitor accordingly.
--- NOTE | 2020-07-06 18:50 | NUR ---
IV LINE ESTABLISHED BLOOD DRAWN AND SENT TO LAB.
[2020-07-06 18:52] LABS: BASOPHILS % (AUTO) 0.9 % (0.0-2.0); EOSINOPHILS % (AUTO) 0.8 % (0.0-6.0); HEMATOCRIT 35 % (39-51); HEMOGLOBIN 12.2 g/dL (13.5-17.5); LYMPHOCYTES # (AUTO) 1.1 /CMM (0.8-4.8); LYMPHOCYTES % (AUTO) 22.4 % (20.0-44.0); MEAN CORPUSCULAR HGB CONC 34 g/dl (31.0-36.0); MEAN CORPUSCULAR VOLUME 98 fL (80-96); MONOCYTES # (AUTO) 0.5 /CMM (0.1-1.30); NEUTROPHILS # (AUTO) 3.4 /CMM (1.8-8.9); NEUTROPHILS % (AUTO) 66.9 % (43.0-81.0); PLATELET COUNT (AUTO) 108 /CMM (150-450); WHITE BLOOD COUNT (AUTO) 5.1 K/uL (4.3-11.0)
[2020-07-06 19:03] LABS: CALCIUM, SERUM 7.4 mg/dL (8.5-10.1); CREATININE 0.8 mg/dL (0.6-1.3)
--- NOTE | 2020-07-06 20:15 | NUR ---
COVID SWAB COLLECTED, CALLED LAB FOR [facility]
[2020-07-06] MEDS ORDERED: HYDROCODONE/APAP 5/325MG TABLET PO PRN (20:30)
[2020-07-06] MEDS ORDERED: Z GUARD REMEDY 2 OZ OINT TP PRN (20:30)
[2020-07-06] MEDS ORDERED: ACETAMINOPHEN 325 MG TABLET PO PRN (20:30)
[2020-07-06] MEDS ORDERED: MAGNESIUM HYDROXIDE 30 ML UDC PO PRN (20:30)
[2020-07-06] MEDS ORDERED: ONDANSETRON HCL/PF 4 MG/2 ML VIAL IVP PRN (20:30)
[2020-07-06] MEDS ORDERED: MAG HYDROX/AL HYDROX/SIMETH 30 ML UDC PO PRN (20:30)
[2020-07-06] MEDS ORDERED: ZOLPIDEM TARTRATE 5 MG TABLET PO PRN (20:30)
--- NOTE | 2020-07-06 22:15 | NUR ---
COVID NEGATIVE PER LAB
[2020-07-06] MEDS ORDERED: POTASSIUM CHLORIDE 20 MEQ TAB.PRT.SR PO ONE (23:00)
--- NOTE | 2020-07-07 01:34 | NUR ---
BED ASSIGNMENT 308-1
[2020-07-07] MEDS ORDERED: POTASSIUM CHLORIDE 20 MEQ TAB.PRT.SR PO ONE (01:57)
--- NOTE | 2020-07-07 02:08 | NUR ---
REPORT GIVEN TO ROSALEE MAXWELL FOR ERIK PT WILL BE TRANSPORTED TO 3RD FLOOR
[2020-07-07 02:20] VITALS: BP 146/78
--- NOTE | 2020-07-07 02:20 | NUR ---
MS ACADEMIC MANAGER NOTES RECEIVED REPORT FROM PAPITO MAXWELL. PATIENT ADMITTED FROM ER VIA GURNEY. PATIENT A/OX4; ABLE TO MAKE NEEDS KNOWN. ON ROOM AIR AND TOLERATING WELL. NO S/S OF DISTRESS AT THIS TIME. C/O ABDOMINAL PAIN BUT REFUSED PRN PAIN MEDICATIONS. SKIN IS INTACT. IV RAC #20G PATENT AND INTACT. ALL BELONGINGS SIGNED AND ACCOUNTED FOR. ORIENTED PATIENT TO STAFF AND ROOM. PATIENT IS COMFORTABLE AT THE TIME. SAFETY MEASURES IN PLACE; BED IN LOWEST LOCKED POSITION, SIDE RAILS UPX2, CALL LIGHT WITHIN REACH, BED ALARM ON. EDUCATED PATIENT TO USE CALL LIGHT FOR HELP. WILL CONTINUE PLAN OF CARE.
[2020-07-07 07:21] LABS: BASOPHILS # (AUTO) 0.1 /CMM (0.0-0.2); BASOPHILS % (AUTO) 1.4 % (0.0-2.0); EOSINOPHILS % (AUTO) 1.3 % (0.0-6.0); HEMATOCRIT 32 % (39-51); HEMOGLOBIN 11.3 g/dL (13.5-17.5); LYMPHOCYTES # (AUTO) 0.7 /CMM (0.8-4.8); MEAN CORPUSCULAR HGB CONC 35 g/dl (31.0-36.0); MEAN CORPUSCULAR VOLUME 98 fL (80-96); MONOCYTES # (AUTO) 0.5 /CMM (0.1-1.30); MONOCYTES % (AUTO) 12.1 % (2.0-12.0); NEUTROPHILS # (AUTO) 2.6 /CMM (1.8-8.9); NEUTROPHILS % (AUTO) 66.2 % (43.0-81.0); PLATELET COUNT (AUTO) 95 /CMM (150-450); RED BLOOD CELL COUNT(AUTO) 3.32 MIL/uL (4.5-6.0); WHITE BLOOD COUNT (AUTO) 3.9 K/uL (4.3-11.0)
--- NOTE | 2020-07-07 07:25 | NUR ---
MS RN OPENING NOTES PATIENT RECEIVED IN BED. A/O X3. NO SOB NOTED. NO S/S OF RESPIRATORY DISTRESS. SPOKE WITH DENNIS FROM [facility] REGARDING US GUIDED PARACENTESIS TODAY, CONSENT VERIFIED. LAB CALLED A CRITICAL VALUE OF POTASSIUM 2.6, MD ALONZO MARVIN IS MADE AWARE. SAFETY MEASURES MAINTAINED. BED IN LOWEST POSITION, BRAKES LOCKED. SIDE RAILS UP X2. CALL LIGHT WITHIN REACH. WILL CONTINUE PLAN OF CARE.
[2020-07-07 07:39] LABS: CALCIUM, SERUM 7.2 mg/dL (8.5-10.1); CREATININE 0.6 mg/dL (0.6-1.3); MAGNESIUM 1.4 mg/dL (1.8-2.4); PHOSPHORUS 3.1 mg/dL (2.5-4.9)
[2020-07-07 07:43] LABS: POTASSIUM 2.6 mmol/L (3.5-5.1)
--- NOTE | 2020-07-07 07:49 | NUR ---
MS RN CLOSING NOTES PATIENT A/OX4; ABLE TO MAKE NEEDS KNOWN. ON ROOM AIR AND TOLERATING WELL. NO S/S OF DISTRESS AT THIS TIME. SKIN IS INTACT. IV RAC #20G PATENT AND INTACT. PATIENT SIGNED CONSENT FORM FOR US GUIDED ASCITES - PARACENTESIS AND IN CHART. SAFETY MEASURES IN PLACE; BED IN LOWEST LOCKED POSITION, SIDE RAILS UPX2, CALL LIGHT WITHIN REACH, BED ALARM ON. EDUCATED PATIENT TO USE CALL LIGHT FOR HELP. ENDORSED ERIK TO ONCOMING MORNING NURSE
[2020-07-07 07:57] LABS: THYROID STIMULATING HORMONE 2.233 uIU/mL (0.358-3.74)
[2020-07-07 08:00] VITALS: BP 138/83
[2020-07-07] MEDS ORDERED: PANTOPRAZOLE 40 MG VIAL IV SCH (09:00)
--- NOTE | 2020-07-07 09:33 | NUR ---
MS RN NOTES ONGOING PARACENTESIS
[2020-07-07] MEDS ORDERED: MAGNESIUM OXIDE 400 MG TABLET PO ONE (10:00)
--- NOTE | 2020-07-07 10:17 | NUR ---
MS RN NOTES PARACENTESIS DONE. INFORMED DR ALONZO MARVIN. ORDERED TO TRANSFER PT. TO LOW NA DIET.
[2020-07-07 10:27] LABS: EOSINOPHILS % (MANUAL) 1 % (0-4); LYMPHOCYTES % (MANUAL) 22 % (16-48); MONOCYTES % (MANUAL) 10 % (0-11.0); NEUTROPHILS % (MANUAL) 67 (42-76)
--- NOTE | 2020-07-07 10:30 | NUR ---
MS RN NOTES S/P PARACENTESIS WITH OUTPUT OF 7,250
[2020-07-07] MEDS: POTASSIUM CHLORIDE 20 MEQ TAB.PRT.SR PO SCH ×2 (10:44→11:47)
[2020-07-07] MEDS: CELECOXIB 100 MG CAPSULE PO SCH (10:49)
[2020-07-07] MEDS: FUROSEMIDE 40 MG TABLET PO SCH (10:49)
[2020-07-07] MEDS: PROPRANOLOL HCL 10 MG TABLET PO SCH ×2 (10:50→21:30)
[2020-07-07] MEDS: AMLODIPINE BESYLATE 10 MG TABLET PO SCH (10:50)
[2020-07-07] MEDS: SPIRONOLACTONE 25 MG TABLET PO SCH (10:50)
[2020-07-07] MEDS: LISINOPRIL (10MG) 10 MG TABLET PO SCH (10:51)
[2020-07-07] MEDS: ESCITALOPRAM OXALATE (10 MG) 10 MG TABLET PO SCH (10:51)
--- NOTE | 2020-07-07 18:09 | NUR ---
MS RN CLOSING NOTES PATIENT IN BED. A/O X3. NO SOB NOTED. IN NO APPARENT DISTRESS. IV ACCESS ON R AC #20 G. ABLE TO MAKE NEEDS KNOWN. ROUTINE MEDS WERE GIVEN ORDERED. SAFETY MEASURES MAINTAINED. BED IN LOWEST POSITION, BRAKES LOCKED. SIDE RAILS UP X2. CALL LIGHT WITHIN REACH. WILL ENDORSE TO PATIENT CARE TECHNICIAN INSTRUCTOR FOR CONTINUITY OF CARE.
--- NOTE | 2020-07-07 19:30 | NUR ---
MS RN OPENING NOTES: PATIENT IN BED. A/O X3. ABLE TO MAKE NEEDS KNOWN. NO S/SX OF ACUTE RESPIRATORY DISTRESS NOTED. IV ACCESS ON RAC #20 G PATENT AND INTACT. DENIES PAIN OR DISCOMFORT AT THIS TIME. SAFETY MEASURES MAINTAINED. BED IN LOWEST POSITION, BRAKES LOCKED. SIDE RAILS UP X2. CALL LIGHT WITHIN REACH. WILL CONTINUE TO MONITOR.
[2020-07-07 20:00] VITALS: BP 142/84
--- NOTE | 2020-07-08 06:17 | NUR ---
MS RN CLOSING NOTES: PATIENT IN BED ASLEEP, EASILY AROUSABLE. ABLE TO MAKE NEEDS KNOWN. NO S/SX OF ACUTE RESPIRATORY DISTRESS NOTED. IV ACCESS ON RAC #20 G PATENT AND INTACT. DENIES PAIN OR DISCOMFORT AT THIS TIME. SAFETY MEASURES MAINTAINED. BED IN LOWEST POSITION, BRAKES LOCKED. SIDE RAILS UP X2. CALL LIGHT WITHIN REACH. ENDORSE TO DAY SHIFT NURSE FOR CONTINUITY OF CARE.
[2020-07-08 06:37] LABS: BASOPHILS % (AUTO) 0.8 % (0.0-2.0); EOSINOPHILS % (AUTO) 0.3 % (0.0-6.0); HEMATOCRIT 34 % (39-51); HEMOGLOBIN 11.8 g/dL (13.5-17.5); LYMPHOCYTES # (AUTO) 0.7 /CMM (0.8-4.8); LYMPHOCYTES % (AUTO) 14.8 % (20.0-44.0); MEAN CORPUSCULAR HGB CONC 35 g/dl (31.0-36.0); MEAN CORPUSCULAR VOLUME 98 fL (80-96); MONOCYTES # (AUTO) 0.5 /CMM (0.1-1.30); MONOCYTES % (AUTO) 11.6 % (2.0-12.0); NEUTROPHILS # (AUTO) 3.4 /CMM (1.8-8.9); NEUTROPHILS % (AUTO) 72.5 % (43.0-81.0); PLATELET COUNT (AUTO) 109 /CMM (150-450); RED BLOOD CELL COUNT(AUTO) 3.47 MIL/uL (4.5-6.0); WHITE BLOOD COUNT (AUTO) 4.6 K/uL (4.3-11.0)
[2020-07-08 06:52] LABS: CALCIUM, SERUM 7.8 mg/dL (8.5-10.1); CREATININE 0.7 mg/dL (0.6-1.3); PHOSPHORUS 2.9 mg/dL (2.5-4.9); POTASSIUM 3.9 mmol/L (3.5-5.1)
[2020-07-08 06:54] LABS: MAGNESIUM 1.2 mg/dL (1.8-2.4)
--- NOTE | 2020-07-08 07:11 | NUR ---
MS-RN NOTES: CHARGE NURSE RECEIVED A CALL FROM LAB, ([facility]) PATIENT MAGNESIUM LAB RESULT IS 1.2 WILL ENDORSE TO AM SHIFT NURSE FOR FOLLOW UP.
[2020-07-08] MEDS ORDERED: PANTOPRAZOLE 40 MG TABLET.DR PO SCH (07:30)
[2020-07-08 08:00] VITALS: BP 149/93
[2020-07-08] MEDS: SPIRONOLACTONE 25 MG TABLET PO SCH ×2 (08:31→09:00)
[2020-07-08] MEDS: AMLODIPINE BESYLATE 10 MG TABLET PO SCH (08:32)
[2020-07-08] MEDS: CELECOXIB 100 MG CAPSULE PO SCH (08:32)
[2020-07-08] MEDS: LISINOPRIL (10MG) 10 MG TABLET PO SCH ×2 (08:33→09:00)
[2020-07-08] MEDS: ESCITALOPRAM OXALATE (10 MG) 10 MG TABLET PO SCH (08:33)
[2020-07-08] MEDS: FUROSEMIDE 40 MG TABLET PO SCH ×2 (08:33→09:00)
[2020-07-08] MEDS: PROPRANOLOL HCL 10 MG TABLET PO SCH (08:33)
[2020-07-08 09:00] VITALS: BP 149/93
[2020-07-08] MEDS ORDERED: MAGNESIUM OXIDE 400 MG TABLET PO ONE (10:30)
--- NOTE | 2020-07-08 16:10 | NUR ---
MS APPRAISAL ANALYST NOTE PT LEFT @ 1610. PT IS STABLE, A/O X3, LEFT WITH ALL BELONGINGS AND DISCHARGE PAPERWORK. REMOVED IV.
== END 2020-07-08 16:15 | disposition home or self-care (01) | DRG 433 ==
LOC: ER 18:07 → TRANSITION 21:11 → MED 07-07 01:35
PROVIDERS: ADMIT Student in an Organized Health Care Education/Training Program; ATTEND Nurse Practitioner Acute Care
PROC: 0W9G3ZZ Drainage of Peritoneal Cavity, Percutaneous Approach (ICD-10-PCS; principal; 2020-07-07)
DX: K70.31 Alcoholic cirrhosis of liver with ascites (principal); E44.1 Mild protein-calorie malnutrition; I11.0 Hypertensive heart disease with heart failure; E87.6 Hypokalemia; I50.9 Heart failure, unspecified; F32.9 Major depressive disorder, single episode, unspecified; F41.9 Anxiety disorder, unspecified; D50.9 Iron deficiency anemia, unspecified; D69.6 Thrombocytopenia, unspecified; E66.9 Obesity, unspecified; G89.29 Other chronic pain; Z87.891 Personal history of nicotine dependence; H54.62 Unqualified visual loss, left eye, normal vision right eye; Z68.32 Body mass index [BMI] 32.0-32.9, adult; Z20.822 Contact with and (suspected) exposure to COVID-19; K43.9 Ventral hernia without obstruction or gangrene
CPT/HCPCS: 36415; 71045-TC; 76942-TC; 80048-TC; 80061-TC; 83735-TC; 84100-TC; 84443-TC; 85025-TC; 85730-TC; 87081-TC; A6403; C9113; G0378; J2405; J7050